=== PATIENT | female | born 1995 | race Caucasian/White ===

== ENCOUNTER 2017-09-17 09:42 | Inpatient (IN) | payer SELFPAY, OTHER ==
[2017-09-15 15:44] VITALS: BMI 31.5
[2017-09-17] VITALS (17 sets, daily range): BP systolic 99–120; BP diastolic 46–81; PULSE 71–105; RESP 15–18; TEMP 36.1–36.8; O2SAT 95–100
[2017-09-17] MEDS: Lactated Ringers 1,000 ML 999 ML IV ×2 (10:10→17:10)
[2017-09-17 10:26] LABS: Absolute Lymphocyte Count 1.33 X10^3/ul (0.83-4.51); Absolute Neutrophil Count 7.4 X10^3/uL (2.0-7.7); Basophil# 0.01 X10^3/uL; Basophil% 0.1 % (0-1); Eosinophil# 0.04 X10^3/uL; Eosinophils% 0.4 % (0-5); Hematocrit 37.3 % (37-47); Hemoglobin 11.8 g/dl (12.0-15.0); Lymphocyte # 1.33 X10^3/ul (4.0); Lymphocyte % 14.2 % (19-41); Mean Corp Hgb Conc 31.6 g/gl (32-36); Mean Corpuscular Hgb 25.7 pg (27.0-32.0); Mean Corpuscular Volume 81.3 fL (81-99); Mean Platelet Vol. 8.9 fl (6.2-12.0); Monocyte# 0.54 X10^3/uL; Monocyte% 5.8 % (0-10); Neutrophil # 7.44 X10^3/uL (2.7-7.7); Neutrophil % 79.3 % (47-70); POSITIVE COUNT NO; POSITIVE DIFFERENTIAL NO; POSITIVE MORPHOLOGY NO; Platelet Count 346 K/mm3 (150-450); RBC Distribution Width CV 14.9 % (11.6-14.6); RBC Distribution Width SD 43.4 fl (35.1-43.9); Red Blood Count 4.59 M/mm3 (4.2-5.4); White Blood Count 9.4 K/mm3 (4.4-11.0)
[2017-09-17] MEDS: Lactated Ringers 1,000 ML 150 ML IV (11:15)
[2017-09-17] MEDS: Cefazolin 2 GM in 0.9% Normal Saline 100 ML IV (11:37)
[2017-09-17] MEDS: Sodium Citrate/Citric Acid 30 ML UDC PO (11:38)
--- NOTE | 2017-09-17 11:46 | PCM.HP.STD ---
Problem List (1) Post-dates Status: Acute (2) Previous delivery affecting Status: Chronic History of Present Illness Date of Admission: 09/17/17 Chief Complaint: Previous section requesting repeat C/S The patient is a 22 year old F [ at 41w4d ega with uncomplicated admitted for repeat C/S. 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 Lives: Spouse/ Significant Other Smoking Status: Never smoker Tobacco Use: Non-smoker Alcohol: None Drugs: None - *Family History Maternal History Items: No pertinent history Paternal History Items: No pertinent history Review of Systems Constitutional: Denies: Chills, Fever, Night Sweats Cardiovascular: Denies: Chest Pain, Chest Pressure, Chest Tightness, Edema Respiratory: Denies: Cough, Shortness of Breath Gastrointestinal: Denies: Constipation, Diarrhea Genitourinary: Denies: Dysuria Gynecological: Denies: Breast symptoms, Vaginal bleeding VTE Information - Inpt Only VTE Present on Admission: No VTE Mechan Device Prophylaxis: SCD's VTE Pharm Prophylaxis ordered?: No Patient Problems: Active and Suspected Problems Post-dates (Acute) Subjective: No complaints. Good movement. Objective: Afeb VSS FHR tracing Cat 1. - Physical Exam General: Alert, Oriented x3, Cooperative, No apparent distress Lungs: Clear to auscultation, Normal air movement Cardiovascular: Regular rate, Regular Rhythm Abdomen: Soft, Non Tender, Non-Distended, Gravid, Appropriate for Gestational Age Extremities: No edema, No Calf Tenderness Skin: No rashes Neurological: Neuro grossly intact Psych/Mental Status: Normal Affect Weight: 178 lb Body Mass Index (BMI) 31.5 Laboratory Tests Past 24 Hrs 09/17/17 09/17/17 09/17/17 10:10 10:10 10:10 WBC 9.4 RBC 4.59 Hgb 11.8 L Hct 37.3 MCV 81.3 MCH 25.7 L MCHC 31.6 L RDW 14.9 H RDW Differential 43.4 Plt Count 346 MPV 8.9 Immature Gran % (Auto) 0.200 Neut % (Auto) 79.3 H Lymph % (Auto) 14.2 L [place] % (Auto) 5.8 Eos % (Auto) 0.4 Baso % (Auto) 0.1 Absolute Neuts (auto) 7.4 Absolute Lymphs (auto) 1.33 Total Counted Not Reportable HIV 1&2 Antibody Pending Blood Type A POSITIVE Antibody Screen NEGATIVE Assessment/Plan Active and Suspected Problems Post-dates (Acute) Admitted for scheduled repeat section. Risks, indications, alternatives discussed. Procedures and postoperative expectations reviewed. Consents signed.
--- NOTE | 2017-09-17 11:51 | HP.PCM_ITS ---
Problem List (1) Post-dates Status: Acute (2) Previous delivery affecting Status: Chronic History of Present Illness Date of Admission: 09/17/17 Chief Complaint: Previous section requesting repeat C/S The patient is a 22 year old F [ at 41w4d ega with uncomplicated admitted for repeat C/S. 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 Lives: Spouse/ Significant Other Smoking Status: Never smoker Tobacco Use: Non-smoker Alcohol: None Drugs: None - *Family History Maternal History Items: No pertinent history Paternal History Items: No pertinent history Review of Systems Constitutional: Denies: Chills, Fever, Night Sweats Cardiovascular: Denies: Chest Pain, Chest Pressure, Chest Tightness, Edema Respiratory: Denies: Cough, Shortness of Breath Gastrointestinal: Denies: Constipation, Diarrhea Genitourinary: Denies: Dysuria Gynecological: Denies: Breast symptoms, Vaginal bleeding VTE Information - Inpt Only VTE Present on Admission: No VTE Mechan Device Prophylaxis: SCD's VTE Pharm Prophylaxis ordered?: No Patient Problems: Active and Suspected Problems Post-dates (Acute) Subjective: No complaints. Good movement. Objective: Afeb VSS FHR tracing Cat 1. - Physical Exam General: Alert, Oriented x3, Cooperative, No apparent distress Lungs: Clear to auscultation, Normal air movement Cardiovascular: Regular rate, Regular Rhythm Abdomen: Soft, Non Tender, Non-Distended, Gravid, Appropriate for Gestational Age Extremities: No edema, No Calf Tenderness Skin: No rashes Neurological: Neuro grossly intact Psych/Mental Status: Normal Affect Weight: 178 lb Body Mass Index (BMI) 31.5 Laboratory Tests Past 24 Hrs 09/17/17 09/17/17 09/17/17 10:10 10:10 10:10 WBC 9.4 RBC 4.59 Hgb 11.8 L Hct 37.3 MCV 81.3 MCH 25.7 L MCHC 31.6 L RDW 14.9 H RDW Differential 43.4 Plt Count 346 MPV 8.9 Immature Gran % (Auto) 0.200 Neut % (Auto) 79.3 H Lymph % (Auto) 14.2 L [place] % (Auto) 5.8 Eos % (Auto) 0.4 Baso % (Auto) 0.1 Absolute Neuts (auto) 7.4 Absolute Lymphs (auto) 1.33 Total Counted Not Reportable HIV 1&2 Antibody Pending Blood Type A POSITIVE Antibody Screen NEGATIVE Assessment/Plan Active and Suspected Problems Post-dates (Acute) Admitted for scheduled repeat section. Risks, indications, alternatives discussed. Procedures and postoperative expectations reviewed. Consents signed.
--- NOTE | 2017-09-17 11:59 | OP.PCM_ITS ---
Problem List (1) Post-dates Status: Acute (2) Previous delivery affecting Status: Chronic Report of Operation Date of Procedure: 09/17/17 Pre-Operative Diagnosis: Previous Delivery requesting repeat Post-Operative Diagnosis: Same Surgery/Procedure Performed:: Repeat Low Transverse Section Description of Surgical Findings:: Normal appearing uterus, ovaries, and fallopian tubes. Minor scarring of bladder to the right lower anterior uterine segment. Amniotic fluid with light meconium staining. Delivery of a live female from vertex presentation. Apgars 8/9. weight [id number]. There was a nuchal cord x 2. Placenta anterior fundal. competitive intelligence analyst: Korey Mendoza Type of Anesthesia:: Spinal Anesthesiologist: Theresa Maddox Specimen's removed: none Drains: zaragoza Estimated Blood Loss (mL): 600 Fluids Replaced: 1500cc Description of Procedure: Emily was taken to the OR with IV running. She was given 2 grams of Ancef intravenously for surgical prophylaxis. Spinal anesthesia was introduced without complication. She was then prepped and draped in the supine position with a leftward tilt. A zaragoza catheter was placed. Once anesthesia was deemed to be adequate a [place] skin incision was made over the previous scar. The underlying subcutaneous tissue was dissected down to the level of fascia using blunt and sharp dissection. The fascia was then incised in the midline and this incision was extended bilaterally with the [place] scissors. The upper portion of the fascial defect was then grasped with two Tru clamps, elevated and the underlying rectus muscles dissected off with blunt and sharp dissection. In a similar fashion the fascia was dissected off the lower fascial defect. The rectus muscles were then in the midline, the peritoneum identified and entered sharply. The peritoneal defect was extended using blunt dissection. A bladder blade was then placed. The vesicouterine peritoneum was identified and entered sharply. A bladder flap was then created. The bladder blade was replaced. A transverse incision was then made in the lower uterine incision. The uterine defect was extended using blunt lateral and superior traction. The head was then delivered atraumatically. Delayed cord clamping was employed. The baby's mouth and nares were suctioned. There was an active cry shortly after delivery. The baby was handed off to the nursing staff for evaluation. The placenta was then delivered manually. The uterus was then exteriorized and cleared of all clot and membranes. The uterine incision was then repaired in two layers with #1 Vicryl suture. The posterior cul de sac and gutters were cleared of all clots and fluid. The uterus was then returned to the abdomen. The uterine incision was inspected and found to be intact and hemostatic. The peritoneum was then closed with 2-0 Vicryl. The rectus muscles were reapproximated with 0-Vicryl suture. The fascia was reapproximated with #1 Stratofix suture. The subcutaneous layer was closed with 2-0 Vicryl. The skin was closed with a subcuticular stitch of 4-0 Monocryl. Sponge lap and needle counts were correct. The patient was taken to the recovery room in stable condition. - Complications none - Admit VTE Documentation VTE Present on Admission: No VTE Mechan Device Prophylaxis: SCD's VTE Pharm Prophylaxis ordered?: No
[2017-09-17] MEDS: Oxytocin 30 units/NS 500 ml 30 UNITS/500 ML IV.SOLN 167 UNITS IV (12:20)
--- NOTE | 2017-09-17 12:44 | PCM.OB.CSR ---
- Problem List (1) Post-dates Status: Acute (2) Previous delivery affecting Status: Chronic Delivery Classification: Scheduled Final CLIFFORD: 09/06/17 Final CLIFFORD Source: US <20 weeks Gestational age: 41 Weeks and 4 Days Indications for : Repeat Elective Description of Procedure: Normal appearing uterus ovaries and fallopian tubes. Minor scarring of bladder to right anterior lower uterine segment. Thin meconium present. Live female in vertex presentation. There was an umbilical cord around the neck x 2. Placenta anterior-fundal. Amniotic Membrane Rupture Type: Artificial Amniotic Fluid Description: Lightly stained meconium Placenta Disposition: [facility] Drain: [place] to straight drain Fluids Replaced: 1500cc Cord Entanglement: Around neck x 2, loose Nuchal Cord Compression: Without compression Cord Vessel Description: 3 Vessels Esitmated Blood Loss (ml): 600 Infant Gender: Female (1 minute): 8 (5 minute): 9 Pre-op Antibiotic Given: Ancef 2 grams IV x1 Pt instructed on risks of surgery: Bleeding, Infection, Need for Future C-Sections, Injury to surrounding structure(s) including bowel and bladder Complications: None - Admit VTE Documentation VTE Present on Admission: No VTE Mechan Device Prophylaxis: SCD's VTE Pharm Prophylaxis ordered?: No
--- NOTE | 2017-09-17 12:47 | OP.PCM_ITS ---
- Problem List (1) Post-dates Status: Acute (2) Previous delivery affecting Status: Chronic Delivery Classification: Scheduled Final CLIFFORD: 09/06/17 Final CLIFFORD Source: US <20 weeks Gestational age: 41 Weeks and 4 Days Indications for : Repeat Elective Description of Procedure: Normal appearing uterus ovaries and fallopian tubes. Minor scarring of bladder to right anterior lower uterine segment. Thin meconium present. Live female in vertex presentation. There was an umbilical cord around the neck x 2. Placenta anterior-fundal. Amniotic Membrane Rupture Type: Artificial Amniotic Fluid Description: Lightly stained meconium Placenta Disposition: [facility] Drain: [place] to straight drain Fluids Replaced: 1500cc Cord Entanglement: Around neck x 2, loose Nuchal Cord Compression: Without compression Cord Vessel Description: 3 Vessels Esitmated Blood Loss (ml): 600 Infant Gender: Female (1 minute): 8 (5 minute): 9 Pre-op Antibiotic Given: Ancef 2 grams IV x1 Pt instructed on risks of surgery: Bleeding, Infection, Need for Future C- Sections, Injury to surrounding structure(s) including bowel and bladder Complications: None - Admit VTE Documentation VTE Present on Admission: No VTE Mechan Device Prophylaxis: SCD's VTE Pharm Prophylaxis ordered?: No
--- NOTE | 2017-09-17 12:51 | DCINST_ITS ---
Discharge Diet: No Restrictions Discharge Activity: Return to Normal Activity, May Not Drive, May not drive while taking narcotic pain medications., May Shower Return to work on:: 11/01/17 May shower in (days): 0 May resume sexual activity in: 4 weeks Call your doctor if your incision/area has: Sudden Increased Bleeding, Increased Pain/ Swelling, Increased Redness, Foul Smelling Discharge, Swelling at the incision site Call your doctor if you observe: Fever of 101 or Higher, Inability to urinate, Inability to have a bowel movement, Using more than one pad per hour, Shortness of breath, Chest pain, Calf discomfort, Uncontrolled pain Remove Dressing in (days):: 3 Cleanse incision/area with: Soap & Water Additional Instructions: If you experience any of the following, contact your healthcare provider. * Bleeding that soaks a pad every hour for 2 hours * Fever 100.4 or higher * Unrelieved incision or abdominal pain * Swelling, redness, discharge or bleeding from your incision or episiotomy site * Your incision begins to separate * Problems urinating (including inability to urinate or burning while urinating) . * Visual changes * Severe headache * Flu-like symptoms * Pain or redness in one of both of your breasts * Pain, warmth, tenderness or swelling in your legs, especially the calf area * Frequent nausea and vomiting * Symptoms of depression or anxiety If you experience any of the following, call 911 or go to the nearest Emergency Room. * Chest pain * Problems breathing * Seizure activity * Partial or complete paralysis of a body part, slurred speech, weakness or drooping of the face, or a sudden inability to walk or hold your balance Allergies/Adverse Reactions: Allergies No Known Allergies Allergy (Verified 09/15/17 15:45) Medications to take at Discharge Evening [place] Oil Softgel 09/15/17 Vit No.130/Iron/FA [ Tablet] 1 each PO 09/15/17 Ibuprofen [Motrin] 800 mg PO TID PRN PRN #30 tab 09/17/17 Oxycodone [Oxyir] 5 - 10 mg PO Q4H PRN PRN 7 Days #30 tab 09/17/17 The following prescriptions were given: Oxycodone [Oxyir] 5 - 10 mg PO Q4H PRN PRN 7 Days #30 tab PRN Reason: Mod-Severe Pain (4-04/13) Ibuprofen [Motrin] 800 mg PO TID PRN PRN #30 tab PRN Reason: pain or cramping Follow-Up: Call to make an appointment with your doctor for an incision check in 1-2 weeks. You will also need a 6 week post- follow up appointment. Please Follow Up With: Milo Gilbert MD When: one week Primary Care Physician: Chapito Krause MD [Primary Care Provider] - Proposed Discharge Date: 09/19/17
[2017-09-17 14:01] LABS: Chlamydia Trachomatis by PCR Negative (Negative); Neisserai gonorrhoeae by PCR Negative (Negative); Probe Check PASS; Sample Adequacy Control PASS; Specimen Processing Control PASS
[2017-09-17 14:34] LABS: HIV - WCH Non-Reactive (Nonreactive)
[2017-09-17] MEDS: Lactated Ringers 1,000 ML 100 ML IV ×2 (17:10→19:22)
--- NOTE | 2017-09-17 18:21 | NURSING ---
1710 dr kowalski made aware of decreased urine output orders received
[2017-09-17] MEDS: Ketorolac 30 MG/ML Syringe IV (18:24)
[2017-09-17] MEDS: Cefazolin 1 GM/50 ML BAG IV (19:21)
[2017-09-18] VITALS (9 sets, daily range): BP systolic 90–112; BP diastolic 45–62; PULSE 58–103; RESP 16–18; TEMP 36.1–37.3; O2SAT 95–100
[2017-09-18] MEDS: Ketorolac 30 MG/ML Syringe IV ×4 (00:41→18:21)
[2017-09-18] MEDS: Cefazolin 1 GM/50 ML BAG IV (03:44)
[2017-09-18 06:22] LABS: Hematocrit 28.9 % (37-47); Hemoglobin 9.1 g/dl (12.0-15.0); Mean Corp Hgb Conc 31.5 g/gl (32-36); Mean Corpuscular Hgb 26.3 pg (27.0-32.0); Mean Corpuscular Volume 83.5 fL (81-99); Mean Platelet Vol. 8.7 fl (6.2-12.0); Platelet Count 233 K/mm3 (150-450); RBC Distribution Width CV 14.9 % (11.6-14.6); Red Blood Count 3.46 M/mm3 (4.2-5.4); White Blood Count 8.2 K/mm3 (4.4-11.0)
[2017-09-18 06:25] LABS: Scan Indicated on CBC? Y/N NO
[2017-09-18] MEDS: Lactated Ringers 1,000 ML 100 ML IV (06:28)
--- NOTE | 2017-09-18 08:15 | PCM.PN.OB ---
Patient Problems: Active and Suspected Problems Post-dates (Acute) Subjective: Some soreness. Bleeding light. Breast feeding. Tolerating PO Objective: Afeb VSS Hgb appropriate. Urine output good. - Physical Exam General: Alert, Oriented x3, Cooperative, No apparent distress Lungs: Clear to auscultation, Normal air movement Cardiovascular: Regular rate, Regular Rhythm Abdomen: Soft, Non Tender, Non-Distended, - - Fundus firm Incision dressing dry Extremities: No edema, No Calf Tenderness Skin: No rashes Psych/Mental Status: Normal Affect Comment: Lochia light Vital Signs Temp Pulse Resp BP Pulse Ox 98.6 F 97 16 100/55 L 97 09/18/17 08:00 09/18/17 08:00 09/18/17 08:00 09/18/17 08:00 09/18/17 06:00 Oxygen Flow Rate (L/min) 98 Oxygen Delivery Method Room Air Weight: 178 lb Body Mass Index (BMI) 31.5 Intake and Output for Last 24 Hours 09/16/17 09/17/17 09/18/17 23:59 23:59 23:59 Intake Total 1592 / 1592 1534 / 1534 Output Total 1350 / 1350 1100 / 1100 Balance 242 / 242 434 / 434 Laboratory Tests Past 24 Hrs 09/17/17 09/17/17 09/17/17 10:10 10:10 10:10 WBC 9.4 RBC 4.59 Hgb 11.8 L Hct 37.3 MCV 81.3 MCH 25.7 L MCHC 31.6 L RDW 14.9 H RDW Differential 43.4 Plt Count 346 MPV 8.9 Immature Gran % (Auto) 0.200 Neut % (Auto) 79.3 H Lymph % (Auto) 14.2 L [place] % (Auto) 5.8 Eos % (Auto) 0.4 Baso % (Auto) 0.1 Absolute Neuts (auto) 7.4 Absolute Lymphs (auto) 1.33 Total Counted Not Reportable Chlam trachomat DNA PCR HIV 1&2 Antibody Non-Reactive N.gonorrhoeae DNA (PCR) Blood Type A POSITIVE Antibody Screen NEGATIVE 09/17/17 09/18/17 11:30 05:55 WBC 8.2 RBC 3.46 L Hgb 9.1 L Hct 28.9 L MCV 83.5 MCH 26.3 L MCHC 31.5 L RDW 14.9 H RDW Differential 44.0 H Plt Count 233 MPV 8.7 Immature Gran % (Auto) Neut % (Auto) Lymph % (Auto) [place] % (Auto) Eos % (Auto) Baso % (Auto) Absolute Neuts (auto) Absolute Lymphs (auto) Total Counted Chlam trachomat DNA PCR Negative HIV 1&2 Antibody N.gonorrhoeae DNA (PCR) Negative Blood Type Antibody Screen Medical Necessity - Tobacco Use Smoking Status: Never smoker Tobacco Use: Non-smoker Assessment/Plan Active and Suspected Problems Post-dates (Acute) Doing well on POD#1. Continue routine PO care. D/C zaragoza later today. PO pain medication then.
[2017-09-18] MEDS: Prenatal Vits Tablet 1 TABLET PO (12:12)
[2017-09-18] MEDS: 0.9% Saline Lock 10 ML Syringe IV ×2 (12:25→18:21)
[2017-09-18] MEDS: Senna/Docusate Sodium 1 Tablet PO (14:28)
[2017-09-18] MEDS: oxyCODONE 5 MG Tablet PO (14:29)
[2017-09-19] MEDS: Ketorolac 30 MG/ML Syringe IV ×2 (00:16→06:19)
[2017-09-19] MEDS: 0.9% Saline Lock 10 ML Syringe IV ×2 (00:16→06:19)
[2017-09-19 02:00] VITALS: BP 122/78; PULSE 88; RESP 18; TEMP 36.7
--- NOTE | 2017-09-19 08:09 | PCM.PN.OB ---
Patient Problems: Active and Suspected Problems Post-dates (Acute) Subjective: No specific complaints. Pain reasonably controlled. Tolerating PO. Voiding. Bleeding light. Breast feeding. Objective: Afeb VSS - Physical Exam General: Alert, Oriented x3, Cooperative, No apparent distress Lungs: Clear to auscultation, Normal air movement Cardiovascular: Regular rate, Regular Rhythm Abdomen: Soft, Non Tender, Non-Distended, - - Fundus firm nontender. Incision dressing dry. Extremities: No edema Skin: No rashes Neurological: Neuro grossly intact Psych/Mental Status: Normal Affect Comment: Lochia light Vital Signs Temp Pulse Resp BP Pulse Ox 98.1 F 88 18 122/78 H 100 09/19/17 02:00 09/19/17 02:00 09/19/17 02:00 09/19/17 02:00 09/18/17 19:30 Oxygen Flow Rate (L/min) 98 Oxygen Delivery Method Room Air Weight: 178 lb Body Mass Index (BMI) 31.5 Intake and Output for Last 24 Hours 09/17/09/18/17 09/19/17 23:59 23:59 23:59 Intake Total 1592 / 1592 2127 / 2127 Output Total 1350 / 1350 4700 / 4700 Balance 242 / 242 -2573 / -2573 Medical Necessity - Tobacco Use Smoking Status: Never smoker Tobacco Use: Non-smoker Assessment/Plan Active and Suspected Problems Post-dates (Acute) Doing well on POD#2. Cleared for discharge home today. Home going instructions and warnings given.
--- NOTE | 2017-09-19 08:13 | DS.PCM_ITS ---
Discharge Date and Diagnosis - Problem List Patient Problems: Active and Suspected Problems Post-dates (Acute) Date of Admission: 09/17/17 Date of Discharge: 09/19/17 - Primary Discharge Diagnosis Active and Suspected Problems Post-dates (Acute), S/P Repeat LTCS - Secondary Discharge Diagnosis Chronic Problems Previous delivery affecting (Chronic) Hospital Course and Treatment Operations: - - Repeat Low Transverse Section Summary of Care Provided: The patient is a 22 year old F [admitted with post dates for repeat elective section. This was performed without complication with delivery of a live female without complication. Postoperative course unremarkable. Discharged home on POD#2.] Discharge Diet: No Restrictions Discharge Activity: Return to Normal Activity, May Not Drive, May not drive while taking narcotic pain medications., May Shower Return to work on:: 11/01/17 May shower in (days): 0 May resume sexual activity in: 4 weeks Call your doctor if your incision/area has: Sudden Increased Bleeding, Increased Pain/ Swelling, Increased Redness, Foul Smelling Discharge, Swelling at the incision site Call your doctor if you observe: Fever of 101 or Higher, Inability to urinate, Inability to have a bowel movement, Using more than one pad per hour, Shortness of breath, Chest pain, Calf discomfort, Uncontrolled pain Remove Dressing in (days):: 3 Cleanse incision/area with: Soap & Water Home Medications: Medications to take at Discharge Evening [place] Oil Softgel 09/15/17 RX: Vit No.130/Iron/FA [ Tablet] 1 each PO 09/15/17 RX: Ibuprofen [Motrin] 800 mg PO TID PRN PRN #30 tab 09/17/17 RX: Oxycodone [Oxyir] 5 - 10 mg PO Q4H PRN PRN 7 Days #30 tab 09/17/17 Following Prescrptions Were Given to Patient: RX: Oxycodone [Oxyir] 5 - 10 mg PO Q4H PRN PRN 7 Days #30 tab PRN Reason: Mod-Severe Pain (4-10/10) RX: Ibuprofen [Motrin] 800 mg PO TID PRN PRN #30 tab PRN Reason: pain or cramping Primary Care Physician: Chapito Krause MD [Primary Care Provider] - Please Follow Up With: Milo Gilbert MD When: one week Disposition: Home Minutes spent on discharge:: 15 Patient Condition:: Good Medical Necessity - Tobacco Use Smoking Status: Never smoker Tobacco Use: Non-smoker Meaningful Use Info Meaningful Use Diagnoses (Choose all that apply): None applicable
[2017-09-19 08:15] VITALS: BP 101/56; PULSE 86; RESP 16; TEMP 36.7
[2017-09-19] MEDS: Ibuprofen 600 MG Tablet PO (12:24)
[2017-09-19 12:30] VITALS: BP 101/56; PULSE 92; RESP 16; TEMP 36.8
== END 2017-09-19 12:30 | disposition home or self-care (01) | DRG 766 ==
PROVIDERS: Admitting Provider Obstetrics & Gynecology; Family Provider Family Medicine; PCP Family Medicine; Visit Provider Obstetrics & Gynecology
DX: O34.211 Maternal care for low transverse scar from previous cesarean delivery (principal); O48.0 Post-term pregnancy; O69.81X0 Labor and delivery complicated by cord around neck, without compression, not applicable or unspecified; O77.0 Labor and delivery complicated by meconium in amniotic fluid; Z37.0 Single live birth; Z3A.41 41 weeks gestation of pregnancy
CPT/HCPCS: 85025; 85027; 86703; 86850; 86900; 87491; 87591; 99218; J7120; A4216; G0378; J2405

== ENCOUNTER → 2018-12-22 | Outpatient (CLI) | payer SELFPAY ==
[2018-12-09 13:04] VITALS: BMI 25.1
--- NOTE | 2018-12-22 14:10 | ECHOD_ITS ---
Reason For Study: chest pain Procedure This was a 2D Doppler, Color Flow transthoracic echocardiogram. The exam was of adequate technical quality. Exam performed in department. Left Ventricle Normal LV size. Left ventricular systolic function is normal. The estimated ejection fraction is 60 %. No evidence for diastolic dysfunction. No regional wall motion abnormalities noted. Right Ventricle Normal RV size. Normal systolic function. Atria Normal left atrium. Normal right atrium. No doppler evidence for ASD. Mitral Valve There is no mitral annular calcification. Normal mitral valve. Trivial mitral valve insufficiency. Tricuspid Valve Normal tricuspid valve. Trivial tricuspid valve insufficiency. Right ventricular systolic pressure estimated to be 21 mmHg. Aortic Valve Trisinus/trileaflet aortic valve. Normal aortic valve. Pulmonic Valve The pulmonic valve is not well visualized. Trivial pulmonic valve insufficiency. Great Vessels Normal sized aortic root. Pericardium/Pleural No pericardial effusion. MMode/2D Measurements & Calculations LVIDd: 4.7 cm IVSd: 0.69 cm Ao root diam: 2.9 cm LVIDs: 3.0 cm LVPWd: 0.74 cm RVDd: 3.0 cm FS: 35.4 % LAV(MOD-bp): 50.9 ml LA A4 area: 17.9 cm2 LA dimension(2D): 2.6 cm LAV(MOD-bp) Indexed: 30.4 ml/m2 LAV(MOD-sp2): 46.8 ml LAV(MOD-sp4): 46.8 ml RA A4 area: 13.8 cm2 Time Measurements MV dec time: 0.14 sec Doppler Measurements & Calculations MV E max del: 77.8 cm/sec Lat Peak E' Del: 18.4 cm/sec Med Peak E' Del: 16.2 cm/sec MV A max del: 45.1 cm/sec E/E' lat: 4.2 E/E' med: 4.8 MV E/A: 1.7 Ao V2 max: 122.4 cm/sec LV V1 max: 93.7 cm/sec PA V2 max: 77.8 cm/sec Ao max P.0 mmHg LV V1 max P.5 mmHg TR max del: 213.2 cm/sec TR max P.2 mmHg Interpretation Summary Left ventricular systolic function is normal. The estimated ejection fraction is 60 %. Trivial mitral valve insufficiency. Trivial tricuspid valve insufficiency. Trivial pulmonic valve insufficiency. Right ventricular systolic pressure estimated to be 21 mmHg. No evidence for diastolic dysfunction. Ordering Physician: Austin Montes Referring Physician: Chapito Krause Performed By: Yara Guadalupe, KAREN, RVT
== END | disposition home or self-care (01) ==
PROVIDERS: Family Provider Family Medicine; PCP Family Medicine; Referring Provider Internal Medicine Cardiovascular Disease; Visit Provider Internal Medicine Cardiovascular Disease
DX: R07.9 Chest pain, unspecified (principal); R06.02 Shortness of breath
CPT/HCPCS: 93306

== ENCOUNTER → 2019-03-15 12:36 | Outpatient (CLI) | payer SELFPAY ==
[2019-03-07 13:50] VITALS: BMI 25.1
--- NOTE | 2019-03-15 12:38 | US_ITS ---
STUDY: SECOND AND THIRD TRIMESTER OBSTETRICAL ULTRASOUND REASON FOR EXAM: Female, 23 years old. LMP: 09/08/2018 TECHNIQUE: Transabdominal TECHNICAL QUALITY: Adequate. PRIOR ULTRASOUND: None. FINDINGS: There is a single intrauterine fetus. The fetus is in a cephalic presentation. There is demonstrated cardiac activity with a heart rate of 150 bpm. There is a normal amniotic fluid volume. The largest amniotic fluid pocket measures 4.5 cm. The amniotic fluid index (FRANCES) is 13.9 cm. The placenta is posterior in location and is not low lying. There are Grade 1 placental changes. The cervix measures 4.5 cm in length. The adnexal regions are not visualized. BIOMETRY: BPD: 6.5 cm: 26 weeks, 3 days HC: 24.8 cm: 27 weeks, 0 days AC: 22.2 cm: 26 weeks, 5 days FL: 4.8 cm: 26 weeks, 2 days CI: 76% FL/BPD: 74% FL/HC: FL/AC: 22% HC/AC: 1.12 age by current US: 26 weeks, 5 days. CLIFFORD by current US: 06/16/2019. Estimated weight: 946 grams, +/- 138 grams, 25 %. Age by LMP: 26 weeks, 6 days. CLIFFORD by LMP: 06/15/2019. US/OB Limited With Biometrics IMPRESSION: Living intrauterine of 26 weeks 5 days as described above. Electronically Signed: Rohan Catalan MD at 9:43 EDT Tel , Service support ,
[2019-03-15 20:03] LABS: Chlamydia Trachomatis by PCR Negative (Negative); Neisserai gonorrhoeae by PCR Negative (Negative); Probe Check PASS; Sample Adequacy Control PASS; Specimen Processing Control PASS
[2019-04-11 15:38] LABS: HPV Reflexed? NOT INDICATED
== END ==
PROVIDERS: Family Provider Family Medicine; PCP Family Medicine; Referring Provider Obstetrics & Gynecology; Visit Provider Obstetrics & Gynecology
DX: O34.219 Maternal care for unspecified type scar from previous cesarean delivery (principal); O48.0 Post-term pregnancy; Z3A.26 26 weeks gestation of pregnancy; Z12.4 Encounter for screening for malignant neoplasm of cervix
CPT/HCPCS: 76816; 76817; 87086; 87088; 87491; 87591; 88175; 93976; G0145

== ENCOUNTER → 2019-05-26 09:37 | Outpatient (CLI) | payer SELFPAY ==
[2019-05-26 09:08] VITALS: BMI 25.1
[2019-05-26 10:33] LABS: Absolute Lymphocyte Count 1.39 X10^3/uL (0.83-4.51); Absolute Neutrophil Count 8.6 X10^3/uL (2.0-7.7); Basophil# 0.02 X10^3/uL; Basophil% 0.2 % (0-1); Eosinophil# 0.05 X10^3/uL; Eosinophils% 0.5 % (0-5); Hematocrit 32.3 % (37-47); Lymphocyte # 1.39 X10^3/ul (4.0); Lymphocyte % 13.1 % (19-41); Mean Corpuscular Volume 77.5 fL (81-99); Mean Platelet Vol. 9.1 fl (6.2-12.0); Monocyte# 0.53 X10^3/uL; NRBC Flagged by Analyzer 0 % (0-5); Neutrophil # 8.57 X10^3/uL (2.7-7.7); Neutrophil % 80.6 % (47-70); Platelet Count 304 K/mm3 (150-450); RBC Distribution Width CV 15.3 % (11.6-14.6); RBC Distribution Width SD 42.3 fl (35.1-43.9); Red Blood Count 4.17 M/mm3 (4.2-5.4); White Blood Count 10.6 K/mm3 (4.4-11.0)
== END ==
PROVIDERS: Family Provider Family Medicine; PCP Family Medicine; Referring Provider Obstetrics & Gynecology; Visit Provider Obstetrics & Gynecology
DX: Z34.83 Encounter for supervision of other normal pregnancy, third trimester (principal)
CPT/HCPCS: 36415; 85025; 87081

== ENCOUNTER → 2019-06-09 09:32 | Outpatient (CLI) | payer OTHER, SELFPAY ==
[2019-06-09 08:29] VITALS: BMI 25.1
[2019-06-09 10:01] LABS: Absolute Neutrophil Count 8.7 X10^3/uL (2.0-7.7); Basophil# 0.02 X10^3/uL; Basophil% 0.2 % (0-1); Eosinophil# 0.05 X10^3/uL; Eosinophils% 0.5 % (0-5); Hematocrit 33.2 % (37-47); Lymphocyte % 11.5 % (19-41); Mean Corp Hgb Conc 30.1 g/dL (32-36); Mean Corpuscular Hgb 23.6 pg (27.0-32.0); Mean Corpuscular Volume 78.3 fL (81-99); Monocyte# 0.44 X10^3/uL; Monocyte% 4.2 % (0-10); NRBC Flagged by Analyzer 0 % (0-5); Neutrophil # 8.65 X10^3/uL (2.7-7.7); Neutrophil % 83.1 % (47-70); Platelet Count 302 K/mm3 (150-450); RBC Distribution Width CV 15.8 % (11.6-14.6); RBC Distribution Width SD 44.3 fl (35.1-43.9); Red Blood Count 4.24 M/mm3 (4.2-5.4); White Blood Count 10.4 K/mm3 (4.4-11.0)
[2019-06-09 10:30] LABS: Fibrinogen 481 mg/dl (203-444)
== END ==
PROVIDERS: Family Provider Family Medicine; PCP Family Medicine; Referring Provider Obstetrics & Gynecology; Visit Provider Obstetrics & Gynecology
DX: O09.33 Supervision of pregnancy with insufficient antenatal care, third trimester (principal); Z3A.00 Weeks of gestation of pregnancy not specified
CPT/HCPCS: 36415; 85025; 85384

== ENCOUNTER 2019-06-22 09:40 | Inpatient (IN) | payer SELFPAY ==
[2019-03-15 15:34] VITALS: BMI 25.1
[2019-06-16 08:59] VITALS: BMI 25.1
[2019-06-22] VITALS (17 sets, daily range): BP systolic 97–124; BP diastolic 42–72; PULSE 63–94; RESP 12–20; TEMP 36.2–37.2; O2SAT 96–100; BMI 29.2
[2019-06-22] MEDS: Lactated Ringers 1,000 ML 999 ML IV ×2 (10:05→23:27)
[2019-06-22 10:23] LABS: Absolute Lymphocyte Count 1.38 X10^3/uL (0.83-4.51); Absolute Neutrophil Count 7.3 X10^3/uL (2.0-7.7); Basophil# 0.01 X10^3/uL; Basophil% 0.1 % (0-1); Eosinophil# 0.03 X10^3/uL; Eosinophils% 0.3 % (0-5); Hematocrit 35.5 % (37-47); Hemoglobin 10.8 g/dL (12.0-15.0); Lymphocyte # 1.38 X10^3/ul (4.0); Mean Corp Hgb Conc 30.4 g/dL (32-36); Mean Corpuscular Hgb 23.4 pg (27.0-32.0); Mean Corpuscular Volume 76.8 fL (81-99); Mean Platelet Vol. 9.1 fl (6.2-12.0); Monocyte# 0.41 X10^3/uL; Monocyte% 4.5 % (0-10); NRBC Flagged by Analyzer 0 % (0-5); Neutrophil # 7.32 X10^3/uL (2.7-7.7); Neutrophil % 79.7 % (47-70); Platelet Count 319 K/mm3 (150-450); RBC Distribution Width CV 16.6 % (11.6-14.6); RBC Distribution Width SD 45.7 fl (35.1-43.9); Red Blood Count 4.62 M/mm3 (4.2-5.4); White Blood Count 9.2 K/mm3 (4.4-11.0)
[2019-06-22] MEDS: Lactated Ringers 1,000 ML 150 ML IV (11:09)
[2019-06-22 12:06] LABS: Hepatitis B Surface Antibody Non-Reactive
[2019-06-22 12:16] LABS: Rubella IgG 125.1 IU/mL
[2019-06-22] MEDS: Cefazolin 2 GM in 0.9% Normal Saline 100 ML IV (12:17)
[2019-06-22] MEDS: Sodium Citrate/Citric Acid 30 ML UDC PO (12:17)
--- NOTE | 2019-06-22 12:34 | HP.PCM_ITS ---
- Problem List (1) Late care affecting in third trimester Status: Acute Comment: first visit 26 weeks (2) Status: Acute Qualifiers: Comment: declines genetic, ntd, and carrier screening. anatomy scan done. (3) Supervision of normal in third trimester Status: Acute Qualifiers: Comment: (declined until time of delivery) CLIFFORD 06/15/19 PC Marilia Cheney, annalisa cabrera (4) Previous delivery affecting Status: Chronic Comment: consent form signed. 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 Is patient in pain?: No Allergies No Known Allergies Allergy (Verified 06/16/19 08:22) Medications docosahexanoic acid 200 mg capsule mg PO cap 03/15/19 [History Confirmed 06/16/19] Last Menstral Period: 09/08/18 Zika: Zika virus screening: Negative : No PFSH PFSH Medical History Previous delivery affecting (Chronic) depression (Acute) Chest pain (Resolved) Post-dates (Resolved) SOB (shortness of breath) (Resolved) Surgical History Previous section (Resolved) Family History Grandmother Cancer Social History (Updated 06/16/19 @ 08:59 by Lali Wakefield MD) Smoking Status: Never smoker alcohol intake: never substance use type: does not use caffeine: No additional social history: -Cabrera Pregancy History 5 Elective abortions Hx Para 3 Spontaneous abortions 1 Hx # Term Pregnancies Ectopic pregnancies Hx # Pregnancies Multiple births # of living children 3 Past Pregnancies Del. Date Name GA/Weeks Outcome Route Bth Weight Gen Labor Lgth Anesthesia Del Locatn Provider FOB 09/15/14 Noni 42 live - full term 7lbs 6oz Female [facility] Dr. Nelida Lobo 01/03/16 Annalisa 43 live - full term 7lbs 4oz Male [facility] Dr. Poppy Lobo 11/17/17 Marilia 42 live - full term 7lbs 11oz Female spinal [facility] Dr. Ofelia Lobo Delivery Date: 09/15/14 On 03/15/19 @ 14:35 [place] No issues during or delivery Delivery Date: 01/03/16 On 03/15/19 @ 14:36 Nakia,[place] Placenta Abruption Delivery Date: 11/17/17 On 03/15/19 @ 14:38 NakiaAngie joseh Was told she could not be induced due to history of placenta abruption. No issues with delivery. HPI 39 WK OB: Details: GAMALIEL BOWIE is a 23 year old who presents for routine OB visit. OB Visit CLIFFORD Calculator Estimated Delivery Date Method Current WG Current Estimate 06/15/19 LMP (Certain) 40w 1d Expected Delivery Route/Plan if labor, if not then RLTCS patient counseled regarding risks/benefits of trial of labor versus repeat . ACOG and uptodate education given to patient. % likelihood of success per calculator TOLAC consent form signed: Labor Preferences- labor support person: samueal pain management options preferred: epidurral cut cord/dad catch: no : yes PP control planned: [] discussed possible routes of delivery and associated risks: [] special requests: [] Specific Issue/Plans flu vaccine: declines tdap vaccine: declines rhogam: LARC form signed: declined Problem list reviewed and updated with the most current plan of care details and appropriate orders placed. Relevant counseling for the gestational age provided. Continue routine care and follow up unless otherwise noted in visit notes/problem list details Initial Weight: 142 lb Date EGA Weight BP Urine Prot Glucose FHR FuHt Pres Mov CTX Dilation Effaced St Visit Note 03/15/19 26w 6d 154 lb 8 oz (+12 lb 8 oz) 110/56 150 04/19/19 31w 6d 160 lb 6 oz (+18 lb 6 oz) 118/68 Negative Negative 148 31 Doing well. Good FM. NO VB, LOF. 05/08/19 34w 4d 165 lb 2 oz (+23 lb 2 oz) 100/62 Negative Negative 145 34 no vb lof good fm no reg ctx 05/26/19 37w 1d 166 lb (+24 lb) 114/70 Negative Negative 140 37 no vb lof good fm no reg ctx agreed to cbc declined other PNL, gbs done. plan CS for 41 weeks prior if spontaneous labor 06/09/19 39w 1d 165 lb (+23 lb) 111/64 Negative Negative 155 38 Cephalic 0.5 no vb lof co some right sided pain and discomfort, contractions but it r esolved. 06/16/19 40w 1d 169 lb 2 oz (+27 lb 2 oz) 122/72 Negative Negative 140 38 Cephalic 0.5 no vb lof good fm no regular ctx Visit Notes Visit Date: 06/16/19 ??no vb lof good fm no regular ctx ??Lali Wakefield MD on 06/16/19 Visit Date: 06/09/19 ??no vb lof co some right sided pain and discomfort, contractions but it resolved. ??Lali Wakefield MD on 06/09/19 Visit Date: 05/26/19 ??no vb lof good fm no reg ctx agreed to cbc declined other PNL, gbs done. plan CS for 41 weeks prior if spontaneous labor ??Lali Wakefield MD on 05/26/19 Visit Date: 05/08/19 ??no vb lof good fm no reg ctx ??Lali Wakefield MD on 05/08/19 Visit Date: 04/19/19 ??Doing well. Good FM. NO VB, LOF. ??LILLY Montoya on 04/19/19 Visit Date: 03/15/19 ??No visit notes to display ACOG First Trimester First Trimester: Desire for , Alcohol, Tobacco Cessation, Illicit/Recreational Drug/Substance Use, Intimate Partner Violence, Barriers to care, Unstable Housing, Communication Barriers, Environmental/Work Hazards, Anticipated Course of Care, Toxoplasmosis Precations, Use of Any medications, Sexual activity, Exercise, Dental Care, Sauna/Hot tub use, Seat Belt use, Childbirth classes/Hospital facilities, , Travel, Indications for US and Screening for Aneuploidy Diagnostics Diagnostics Diagnostics Blood Type A POSITIVE 03/16/18 Antibody Screen NEGATIVE 09/17/17 HIV 1&2 Antibody Non-Reactive (Nonreactive) 09/17/17 Hgb 10.0 g/dL (12.0-15.0) L 06/09/19 Hct 33.2 % (37-47) L 06/09/19 Details: HIV: Urine Culture: Sequential Screen: NIPT Screen: Results [id number] Office Urine Glucose Negative Last Edit by Floresita Mckeon on 06/16/19 08:33 Office Urine Protein Negative Last Edit by Floresita Mckeon on 06/16/19 08:33 Assessment & Plan Problems 1. Late care affecting in third trimester O09.33 first visit 26 weeks 2. 40 weeks gestation of Z3A.40 declines genetic, ntd, and carrier screening. anatomy scan done. 3. Encounter for supervision of other normal in third trimester Z34.83 (declined until time of delivery) CLIFFORD 06/15/19 PC Marilia Cheney andrew cabrera 4. Previous delivery affecting O34.219 consent form signed. plan TOLAC if able, previous then 2 cs; would want cs if no labor at term Orders Orders: POC Urinalysis 2 Dip (Clinic) Today Coding Level of Care Code OB Routine Diagnoses Late care affecting in third trimester O09.33 40 weeks gestation of Z3A.40 ??Weeks of gestation: 40 weeks Encounter for supervision of other normal in third trimester Z34.83 ??Normal : other normal Previous delivery affecting O34.219 UPDATE- I have seen the patient and performed any clinically relevant updates to the history and physical exam. Lali Wakefield MD
--- NOTE | 2019-06-22 12:38 | OP.PCM_ITS ---
Problem List (1) Late care affecting in third trimester Status: Acute Comment: first visit 26 weeks (2) Status: Acute Qualifiers: Comment: declines genetic, ntd, and carrier screening. anatomy scan done. (3) Supervision of normal in third trimester Status: Acute Qualifiers: Comment: (declined until time of delivery) CLIFFORD 06/15/19 Marilia Corrigan annalisa cabrera (4) Previous delivery affecting Status: Chronic Comment: consent form signed. plan TOLAC if able, previous then 2 cs; would want cs if no labor at term Delivery Classification: Scheduled Final CLIFFORD: 06/15/19 Gestational age: 41 Weeks and 0 Days Type of Anesthesia:: Spinal Special Medications: none Implants Used: none Date of Procedure: 06/22/19 Pre-Operative Diagnosis: previous cs x 2 Post-Operative Diagnosis: same Indications for : Repeat Elective Description of Procedure: The patient is a 24 yo presented for repeat . Spinal anesthesia was placed without difficulty. Quiroga catheter was placed. The patient was placed in the dorsal supine position with leftward tilt. Patient was prepped and drap ed in the normal sterile fashion. Pfannenstiel skin incision was made with the scalpel and carried through to the underlying layer of fascia with the scalpel. Fascia was nicked in the midline and the incision extended laterally. The rectus bellies were dissected off superiorly and inferiorly with out complication both sharply and bluntly. The peritoneum was entered digitally. The incision was stretched and a low transverse uterine incision was made with the scalpel. The infant's head was delivered atraumatically followed by the anterior and posterior shoulders without complication the rest of the infant delivered. The cord was clamped and cut and the was handed off to awaiting nurse. The placenta was delivered spontaneously immediately following and was noted to be intact and have a three-vessel cord. The uterus was exteriorized cleared of all clots and debris, and the incision was closed in a double layer closure using #1 Monocryl. The ovaries and fallopian tubes were noted to be within normal limits. The uterus was returned to the maternal abdomen and gutters were cleared of all clots and debris. The peritoneum was closed with 3-0 Monocryl in a running fashion. Gloves were changed prior to fascial closure. Fascia was closed with 0 PDS in a running fashion. Subcutaneous tissue was copiously irrigated and the skin was closed with 3-0 Monocryl in a subcuticular fashion. Mepilex dressing was applied without complication. Patient was taken to recovery in stable condition. It was discussed with the patient that based on the clinical information obtained during this encounter, combined with her history, at this time I would recommend cesareans for future deliveries if further pregnancies are desired. Amniotic Membrane Rupture Type: Artificial Amniotic Fluid Description: Clear Placenta Disposition: [facility] Drain: Quiroga to straight drain Cord Entanglement: None Cord Vessel Description: 3 Vessels Esitmated Blood Loss (ml): 600 Gender: Male Delayed cord clamping: Yes Antibiotic Given: Ancef 2 grams IV x1 Pt instructed on risks of surgery: Bleeding, Anesthesia Risks, Need for Future C-Sections Complications: None - Admit VTE Documentation VTE Present on Admission: No Multi Select Codes - Urinary/Genital Urinary/Genital CPT Codes: 88598 Delivery [facility]
--- NOTE | 2019-06-22 12:40 | DCINST_ITS ---
Discharge Diet: No Restrictions Discharge Activity: Return to Normal Activity, May not drive while taking narcotic pain medications., May Shower May resume sexual activity in: 4-6 weeks Call your doctor if your incision/area has: Continuous Slow Oozing, Sudden Increased Bleeding, Increased Pain/ Swelling, Increased Redness, Foul Smelling Discharge Additional Instructions: If you experience any of the following, contact your healthcare provider. * Bleeding that soaks a pad every hour for 2 hours * Fever 100.4 or higher * Unrelieved incision or abdominal pain * Swelling, redness, discharge or bleeding from your incision or episiotomy site * Your incision begins to separate * Problems urinating (including inability to urinate or burning while urinating). * Visual changes * Severe headache * Flu-like symptoms * Pain or redness in one of both of your breasts * Pain, warmth, tenderness or swelling in your legs, especially the calf area * Frequent nausea and vomiting * Symptoms of depression or anxiety If you experience any of the following, call 911 or go to the nearest Emergency Room. * Chest pain * Problems breathing * Seizure activity * Partial or complete paralysis of a body part, slurred speech, weakness or drooping of the face, or a sudden inability to walk or hold your balance Allergies/Adverse Reactions: Allergies No Known Allergies Allergy (Verified 06/16/19 08:22) Medications to take at Discharge docosahexanoic acid 200 mg capsule 200 mg PO DAILY cap 03/15/19 No122/Iron/Folic Acid [ Multi Tablet] 1 ea PO DAILY 06/22/19 Please Follow Up With: Lali Wakefield MD - [phone] When: Call to make an appointment with your doctor in 6 weeks. If you had elevated Blood pressure or 4th degree laceration you will need to be seen in 2 weeks. Primary Care Physician: Chapito Krause DO [Primary Care Provider] - Test Results: Test results from this visit will be discussed in further detail at your follow- up appointment, if applicable.
--- NOTE | 2019-06-22 12:40 | PCM.DCVAG ---
Discharge Diet: No Restrictions Discharge Activity: Return to Normal Activity, May not drive while taking narcotic pain medications., May Shower May resume sexual activity in: 4-6 weeks Call your doctor if your incision/area has: Continuous Slow Oozing, Sudden Increased Bleeding, Increased Pain/ Swelling, Increased Redness, Foul Smelling Discharge Additional Instructions: If you experience any of the following, contact your healthcare provider. Bleeding that soaks a pad every hour for 2 hours Fever 100.4 or higher Unrelieved incision or abdominal pain Swelling, redness, discharge or bleeding from your incision or episiotomy site Your incision begins to separate Problems urinating (including inability to urinate or burning while urinating). Visual changes Severe headache Flu-like symptoms Pain or redness in one of both of your breasts Pain, warmth, tenderness or swelling in your legs, especially the calf area Frequent nausea and vomiting Symptoms of depression or anxiety If you experience any of the following, call 911 or go to the nearest Emergency Room. Chest pain Problems breathing Seizure activity Partial or complete paralysis of a body part, slurred speech, weakness or drooping of the face, or a sudden inability to walk or hold your balance Allergies/Adverse Reactions: Allergies No Known Allergies Allergy (Verified 06/16/19 08:22) Medications to take at Discharge docosahexanoic acid 200 mg capsule 200 mg PO DAILY cap 03/15/19 No122/Iron/Folic Acid [ Multi Tablet] 1 ea PO DAILY 06/22/19 Please Follow Up With: Lali Wakefield MD - [phone] When: Call to make an appointment with your doctor in 6 weeks. If you had elevated Blood pressure or 4th degree laceration you will need to be seen in 2 weeks. Primary Care Physician: Chapito Krause DO [Primary Care Provider] - Test Results: Test results from this visit will be discussed in further detail at your follow-up appointment, if applicable.
[2019-06-22] MEDS: Oxytocin 30 units/NS 500 ml 30 UNITS/500 ML IV.SOLN 334 UNITS IV (13:53)
[2019-06-22] MEDS: Lactated Ringers 1,000 ML 100 ML IV (16:40)
--- NOTE | 2019-06-22 18:06 | DCINST_ITS ---
Discharge Diet: No Restrictions Discharge Activity: May Not Drive - for 2 weeks, May not drive while taking narcotic pain medications., May Shower, May Take a Tub Bath - in 7 days May resume sexual activity in: 4-6 weeks Lifting Restrictions: 20 pounds Additional Activity Instructions:: Nothing in the vagina for 4-6 weeks. You may return to work/school in 6 weeks. Call your doctor if your incision/area has: Continuous Slow Oozing, Sudden Increased Bleeding, Increased Pain/ Swelling, Increased Redness, Foul Smelling Discharge Call your doctor if you observe: Fever of 101 or Higher, Using more than one pad per hour - for 2 hours Suture Line Care: Avoid Pulling/Pushing, Avoid Pinching/Bending Cleanse incision/area with: Keep Dressing Clean & Dry Additional Instructions: If you experience any of the following, contact your healthcare provider. * Bleeding that soaks a pad every hour for 2 hours * Fever 100.4 or higher * Unrelieved incision or abdominal pain * Swelling, redness, discharge or bleeding from your incision or episiotomy site * Your incision begins to separate * Problems urinating (including inability to urinate or burning while urinating). * Visual changes * Severe headache * Flu-like symptoms * Pain or redness in one of both of your breasts * Pain, warmth, tenderness or swelling in your legs, especially the calf area * Frequent nausea and vomiting * Symptoms of depression or anxiety If you experience any of the following, call 911 or go to the nearest Emergency Room. * Chest pain * Problems breathing * Seizure activity * Partial or complete paralysis of a body part, slurred speech, weakness or drooping of the face, or a sudden inability to walk or hold your balance Allergies/Adverse Reactions: Allergies No Known Allergies Allergy (Verified 06/16/19 08:22) Medications to take at Discharge docosahexanoic acid 200 mg capsule 200 mg PO DAILY cap 03/15/19 Naproxen [Naprosyn] 250 - 500 mg PO Q8H PRN PRN #30 tab 06/22/19 Oxycodone HCl/Acetaminophen [Percocet 5-325] 1 - 2 tab PO Q6H PRN PRN 7 Days #15 tab 06/22/19 No122/Iron/Folic Acid [ Multi Tablet] 1 ea PO DAILY 06/22/19 The following prescriptions were given: Naproxen [Naprosyn] 250 - 500 mg PO Q8H PRN PRN #30 tab PRN Reason: MILD PAIN Transmission Status: Received by [facility] Oxycodone HCl/Acetaminophen [Percocet 5-325] 1 - 2 tab PO Q6H PRN PRN 7 Days #15 tab PRN Reason: Pain Transmission Status: Received by [facility] Follow-Up: Call to make an appointment with your doctor for an incision check in 1-2 weeks. You will also need a 6 week post- follow up appointment. Test results from this visit will be discussed in further detail at your follow- up appointment, if applicable. Please Follow Up With: Lali Wakefield MD - Call to make an appointment for an incision check in 1-2 [phone] When: You will need a post- check in 6 weeks. Primary Care Physician: Chapito Krause, [Primary Care Provider] -
[2019-06-22] MEDS: 0.9% Saline Lock 10 ML Syringe IV (18:24)
[2019-06-22] MEDS: Ketorolac 30 MG/ML Syringe IV (18:24)
[2019-06-22] MEDS: Lactated Ringers 500 ML 999 ML IV (18:47)
[2019-06-22 23:27] LABS: Hemoglobin 8.4 g/dL (12.0-15.0)
[2019-06-23] VITALS (11 sets, daily range): BP systolic 87–106; BP diastolic 44–56; PULSE 68–95; RESP 16–18; TEMP 36.8–37.2; O2SAT 96–100
[2019-06-23] MEDS: Lactated Ringers 1,000 ML 100 ML IV (00:40)
[2019-06-23] MEDS: Ketorolac 30 MG/ML Syringe IV ×4 (00:40→17:36)
[2019-06-23 04:00] LABS: Hemoglobin 8.6 g/dL (12.0-15.0)
[2019-06-23 05:05] LABS: Hematocrit 28.1 % (37-47); Hemoglobin 8.6 g/dL (12.0-15.0); Mean Corp Hgb Conc 30.6 g/dL (32-36); Mean Corpuscular Hgb 23.8 pg (27.0-32.0); Mean Corpuscular Volume 77.6 fL (81-99); Mean Platelet Vol. 9.5 fl (6.2-12.0); Platelet Count 254 K/mm3 (150-450); RBC Distribution Width CV 16.6 % (11.6-14.6); RBC Distribution Width SD 46.8 fl (35.1-43.9); Red Blood Count 3.62 M/mm3 (4.2-5.4)
--- NOTE | 2019-06-23 08:10 | PCM.PN.OB ---
Subjective: doing well no complaints pain controlled no CP SOB N V up to bedside tolerating po lochia moderate, going well - Physical Exam Vitals/I&O's: Vital Signs Temp Pulse Resp BP Pulse Ox 98.4 F 75 16 91/53 L 96 06/23/19 03:35 06/23/19 05:30 06/23/19 05:30 06/23/19 03:40 06/23/19 05:30 Oxygen Delivery Method Room Air Weight: 170 lb 6.677 oz Body Mass Index (BMI) 29.2 Intake and Output for Last 24 Hours 06/21/19 06/22/19 06/23/19 23:59 23:59 23:59 Intake Total 3428.17 / 3428.17 1000 / 1000 Output Total 300 / 300 2100 / 2100 Balance 3128.17 / 3128.17 -1100 / -1100 General: Alert, Oriented x3 Abdomen: Soft, Non-Distended, - - FF below U. Dressing dry and intact Laboratory Results 06/22/19 10:05: WBC 9.2, RBC 4.62, Hgb 10.8 L, Hct 35.5 L, MCV 76.8 L, MCH 23.4 L, MCHC 30.4 L, RDW Std Deviation 45.7 H, RDW Coeff of Daja 16.6 H, Plt Count 319, MPV 9.1, Immature Gran % (Auto) 0.400, Neut % (Auto) 79.7 H, Lymph % (Auto) 15.0 L, [place] % (Auto) 4.5, Eos % (Auto) 0.3, Baso % (Auto) 0.1, Absolute Neuts (auto) 7.3, Absolute Lymphs (auto) 1.38, Nucleated RBC % 0 06/22/19 10:05: Blood Type A POSITIVE, Antibody Screen NEGATIVE 06/22/19 11:20: Rubella IgG Antibody 125.1 06/22/19 11:20: RPR Pending 06/22/19 11:20: Hep Bs Antibody Non-Reactive 06/22/19 23:22: Hgb 8.4 L 06/23/19 03:50: WBC 10.0, RBC 3.62 L, Hgb 8.6 L, Hct 28.1 L, MCV 77.6 L, MCH 23.8 L, MCHC 30.6 L, RDW Std Deviation 46.8 H, RDW Coeff of Daja 16.6 H, Plt Count 254, MPV 9.5 06/23/19 03:50: Hgb 8.6 L Current Medications Acetaminophen (Tylenol) 1,000 mg PO Q8H PRN PRN PRN Reason: Pain Score 1-3/10 Bisacodyl (Dulcolax) 10 mg RECTAL UD PRN PRN Reason: If no BM Dibucaine (Dibucaine) 1 applic TOPICAL TID PRN PRN; Protocol PRN Reason: Discomfort Hydrocortisone (Hytone) 1 applic TOPICAL TID PRN PRN; Protocol PRN Reason: Discomfort Lactated Ringer's () 1,000 mls @ 100 mls/hr IV .Q10H [facility] Last Admin: 06/23/19 00:40 Dose: 100 mls/hr Documented by: Naloxone HCl 4 mg/ Dextrose 504 mls @ 0 mls/hr IV .Q0M PRN; Protocol PRN Reason: Respiratory depression Ketorolac Tromethamine (Toradol) 30 mg IV Q6H [facility] Stop: 06/24/19 12:01 Last Admin: 06/23/19 06:15 Dose: 30 mg Documented by: Methylergonovine Maleate (Methergine) 0.2 mg IM X1 PRN PRN Reason: Excess bleeding/uterine atony Nalbuphine HCl (Nubain) 5 mg IV Q3H PRN PRN PRN Reason: ITCHING Stop: 06/23/19 13:57 Naloxone HCl (Narcan) 0.02 mg IV Q1M PRN PRN Reason: RR <10 and pt unresponsive Naproxen (Naprosyn) 250 - 500 mg PO Q8H PRN PRN PRN Reason: Pain Score 1-3/10 Ondansetron HCl (Zofran) 4 mg IV Q4H PRN PRN PRN Reason: Nausea Oxycodone HCl (Oxyir) 5 - 10 mg PO Q4H PRN PRN PRN Reason: Pain Score 4-10/10 Prochlorperazine Edisylate (Compazine Iv) 10 mg IV Q6H PRN PRN PRN Reason: NAUSEA Senna/Docusate Sodium (Senokot-S, [place]-Colace) 1 - 2 tablet PO DAILY PRN PRN PRN Reason: Constipation Simethicone (Mylicon) 80 mg PO PCHS PRN PRN Reason: Indigestion/Stomach pain Sodium Chloride () 5 - 15 ml IV UD PRN PRN Reason: SALINE FLUSH Last Admin: 06/22/19 18:24 Dose: 10 ml Documented by: Medical Necessity - Tobacco Use Smoking Status: Never smoker Assessment/Plan All Active Problems (Last Reviewed 06/16/19 @ 08:22 by [place] Yee) Late care affecting in third trimester (Acute) (Acute) Supervision of normal in third trimester (Acute) Chest pain (Resolved) Post-dates (Resolved) SOB (shortness of breath) (Resolved) s/p LTCS PPD # 1 1. routine post care 2. breast feeding- support given 3. rh positive 4. rubella immune
[2019-06-23] MEDS: 0.9% Saline Lock 10 ML Syringe IV ×2 (11:43→17:37)
--- NOTE | 2019-06-23 18:00 | CASEMGMT ---
Social Work Brief Assessment - Labor and Delivery Unit Refer documentation below for further details. Date of Referral/Notification: 06/22/19 Time of Referral: 14:46 Reason for Referral: HX OF UNDIAGNOSED POST DEPRESSION (PPD) Date of Intervention: 06/23/19 Time of Intervention: 18:00 Informant: Medical record and mother of baby (MOB) Assessment: MET WITH MOB AND FOB IN ROOM. THEY REPORT THIS IS THEIR 4TH CHILD. BABY MARCI JACOBSEN WAS BORN ON 06/22/19. MOB REPORTS BABY DOING WELL. MOB IS AND REPORTS IT IS GOING WELL. DISCUSSED MOB'S MENTAL HEALTH HISTORY. MOB REPORTS BELIEVED TO HAVE HAD PPD AFTER LAST , BUT IT WAS NEVER DIAGNOSED. MOB AND FOB REPORT MOB WITH HISTORY OF ANXIETY. FOB STATES MOB HAD ANXIETY ATTACK BACK IN SEPTEMBER. MOB REPORTED HAD CHEST TIGHTNESS AND PAIN. 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 MOB AGREED WITH STATEMENT. MOB STATES IS NOT ON ANY MEDICATION FOR MENTAL HEALTH. MOB REPORTS GOOD SUPPORT FROM FAMILY AND [facility]. MOB AND FOB STATE HAVE ALL NEEDS MET FOR BABY. REVIEWED INFORMATIONAL HANDOUTS ON POST DEPRESSION. MOB AND FOB DECLINE ANY NEED FOR REFERRALS. HANDOUTS GIVEN ALONG WITH [facility] LIST OF RESOURCES. MOB HOPEFUL FOR D/C TOMORROW AND THANKED THIS WORKER FOR VISIT. NURSE UPDATED ON ASSESSMENT. Plan: HOME WITH FAMILY BEFORE. RESOURCES PROVIDED. No further needs requested or indicated. -Madelin Cook, SECURITY COORDINATOR, CYBER SECURITY ANALYST
[2019-06-24] MEDS: Naproxen 250 MG Tablet PO ×2 (00:46→07:56)
[2019-06-24] MEDS: Senna/Docusate Sodium 1 Tablet PO (00:56)
[2019-06-24 02:00] VITALS: BP 98/50; PULSE 81; RESP 18; TEMP 36.9; O2SAT 97
[2019-06-24 06:44] LABS: Hematocrit 31.1 % (37-47); Hemoglobin 9.3 g/dL (12.0-15.0); Mean Corp Hgb Conc 29.9 g/dL (32-36); Mean Corpuscular Hgb 23.4 pg (27.0-32.0); Mean Corpuscular Volume 78.3 fL (81-99); Mean Platelet Vol. 8.9 fl (6.2-12.0); Platelet Count 298 K/mm3 (150-450); RBC Distribution Width SD 47.4 fl (35.1-43.9); Red Blood Count 3.97 M/mm3 (4.2-5.4); White Blood Count 8.9 K/mm3 (4.4-11.0)
[2019-06-24 08:00] VITALS: BP 110/63; PULSE 80; RESP 18; TEMP 36.8
--- NOTE | 2019-06-24 11:16 | PCM.PN.OB ---
Subjective: doing well no complaints pain controlled no CP SOB N V ambulating well tolerating po lochia moderate, going well - Physical Exam Vitals/I&O's: Vital Signs Temp Pulse Resp BP Pulse Ox 98.3 F 80 18 110/63 97 06/24/19 08:00 06/24/19 08:00 06/24/19 08:00 06/24/19 08:00 06/24/19 02:00 Oxygen Delivery Method Room Air Weight: 170 lb 6.677 oz Body Mass Index (BMI) 29.2 Intake and Output for Last 24 Hours 06/22/19 06/23/19 06/24/19 23:59 23:59 23:59 Intake Total 3428.17 / 3428.17 1999 Output Total 300 / 300 3850 / 3850 Balance 3128.17 / 3128.17 -1850 / -1850 General: Alert, Oriented x3 Laboratory Results 06/24/19 06:35: WBC 8.9, RBC 3.97 L, Hgb 9.3 L, Hct 31.1 L, MCV 78.3 L, MCH 23.4 L, MCHC 29.9 L, RDW Std Deviation 47.4 H, RDW Coeff of Daja 17.0 H, Plt Count 298, MPV 8.9 Current Medications Acetaminophen (Tylenol) 1,000 mg PO Q8H PRN PRN PRN Reason: Pain Score 1-3/10 Bisacodyl (Dulcolax) 10 mg RECTAL UD PRN PRN Reason: If no BM Dibucaine (Dibucaine) 1 applic TOPICAL TID PRN PRN; Protocol PRN Reason: Discomfort Hydrocortisone (Hytone) 1 applic TOPICAL TID PRN PRN; Protocol PRN Reason: Discomfort Lactated Ringer's () 1,000 mls @ 100 mls/hr IV .Q10H DALILA Last Admin: 06/24/19 00:46 Dose: Not Given Documented by: Naloxone HCl 4 mg/ Dextrose 504 mls @ 0 mls/hr IV .Q0M PRN; Protocol PRN Reason: Respiratory depression Ketorolac Tromethamine (Toradol) 30 mg IV Q6H DALILA Stop: 06/24/19 12:01 Last Admin: 06/24/19 07:51 Dose: Not Given Documented by: Methylergonovine Maleate (Methergine) 0.2 mg IM X1 PRN PRN Reason: Excess bleeding/uterine atony Naloxone HCl (Narcan) 0.02 mg IV Q1M PRN PRN Reason: RR <10 and pt unresponsive Naproxen (Naprosyn) 250 - 500 mg PO Q8H PRN PRN PRN Reason: Pain Score 1-3/10 Last Admin: 06/24/19 07:56 Dose: 500 mg Documented by: Ondansetron HCl (Zofran) 4 mg IV Q4H PRN PRN PRN Reason: Nausea Oxycodone HCl (Oxyir) 5 - 10 mg PO Q4H PRN PRN PRN Reason: Pain Score 4-10/10 Prochlorperazine Edisylate (Compazine Iv) 10 mg IV Q6H PRN PRN PRN Reason: NAUSEA Senna/Docusate Sodium (Senokot-S, [place]-Colace) 1 - 2 tablet PO DAILY PRN PRN PRN Reason: Constipation Last Admin: 06/24/19 00:56 Dose: 2 tablet Documented by: Simethicone (Mylicon) 80 mg PO PCHS PRN PRN Reason: Indigestion/Stomach pain Sodium Chloride () 5 - 15 ml IV UD PRN PRN Reason: SALINE FLUSH Last Admin: 06/23/19 17:37 Dose: 10 ml Documented by: Medical Necessity - Tobacco Use Smoking Status: Never smoker Assessment/Plan All Active Problems (Last Reviewed 06/16/19 @ 08:22 by [place] Yee) Late care affecting in third trimester (Acute) (Acute) Supervision of normal in third trimester (Acute) Chest pain (Resolved) Post-dates (Resolved) SOB (shortness of breath) (Resolved) s/p LTCS PPD # 2 1. routine post care 2. breast feeding- support given 3. rh positive 4. rubella immune
[2019-06-29 00:56] LABS: Rapid Plasmin Reagin (RPR) NONREACTIVE (NONREACTIVE)
== END 2019-06-24 12:45 | disposition home or self-care (01) | DRG 788 ==
PROVIDERS: Nurse Practitioner Women's Health; Admitting Provider Obstetrics & Gynecology; Family Provider Family Medicine; PCP Family Medicine; Referring Provider Obstetrics & Gynecology; Visit Provider Obstetrics & Gynecology
PROC: 10D00Z1 Extraction of Products of Conception, Low, Open Approach (ICD-10-PCS; CPT 59514; principal; 2019-06-22 11:45)
DX: O48.0 Post-term pregnancy (principal); Z3A.41 41 weeks gestation of pregnancy; Z37.0 Single live birth
CPT/HCPCS: 85018; 85025; 85027; 86592; 86706; 86762; 86850; 86900; 86901; 99218; J7120; A4216; G0378; J2405

== ENCOUNTER → 2020-11-18 11:11 | Outpatient (CLI) | payer OTHER, SELFPAY ==
[2020-11-18 10:30] VITALS: BMI 25.9
[2020-11-18 11:33] LABS: Absolute Lymphocyte Count 1.58 X10^3/uL (0.83-4.51); Absolute Neutrophil Count 4.1 X10^3/uL (2.0-7.7); Basophil# 0.01 X10^3/uL; Basophil% 0.2 % (0-1); Eosinophil# 0.09 X10^3/uL; Eosinophils% 1.5 % (0-5); Hematocrit 35.9 % (37-47); Hemoglobin 11.8 g/dL (12.0-15.0); Lymphocyte # 1.58 X10^3/ul (0.83-4.51); Lymphocyte % 26.4 % (19-41); Mean Corp Hgb Conc 32.9 g/dL (32-36); Mean Corpuscular Hgb 29.1 pg (27.0-32.0); Mean Corpuscular Volume 88.6 fL (81-99); Mean Platelet Vol. 8.9 fl (6.2-12.0); Monocyte# 0.23 X10^3/uL; Monocyte% 3.8 % (0-10); NRBC Flagged by Analyzer 0 % (0-5); Neutrophil # 4.07 X10^3/uL (2.7-7.7); Neutrophil % 67.9 % (47-70); Platelet Count 310 K/mm3 (150-450); RBC Distribution Width CV 12.6 % (11.6-14.6); RBC Distribution Width SD 41.5 fl (35.1-43.9); Red Blood Count 4.05 M/mm3 (4.2-5.4)
[2020-11-18 11:59] LABS: Rubella IgG Reactive (Nonreactive)
== END ==
PROVIDERS: PCP Family Medicine; Referring Provider Obstetrics & Gynecology; Visit Provider Obstetrics & Gynecology
DX: Z34.90 Encounter for supervision of normal pregnancy, unspecified, unspecified trimester (principal)
CPT/HCPCS: 36415; 85025; 86762; 86850; 86900; 86901; 87086; 87088

== ENCOUNTER → 2021-01-28 13:53 | Outpatient (CLI) | payer SELFPAY ==
[2020-12-27 10:50] VITALS: BMI 25.9
--- NOTE | 2021-01-28 13:56 | US_ITS ---
STUDY: SECOND AND THIRD TRIMESTER OBSTETRICAL ULTRASOUND REASON FOR EXAM: Female, 25 years old screening anatomy LMP: 08/25/2020. TECHNIQUE: Transabdominal and Transvaginal TECHNICAL QUALITY: Adequate. PRIOR ULTRASOUND: None. FINDINGS: There is a single intrauterine fetus. The fetus is in a breech presentation. There is demonstrated cardiac activity with a heart rate of 152 bpm. There is a normal amniotic fluid volume. The largest amniotic fluid pocket measures 3.3 cm x 6 cm. The amniotic fluid index (FRANCES) is within normal limits. The placenta is anterior in location and is not low lying. There are Grade 0 placental changes. The cervix measures 4.7 cm in length. The adnexal regions are not visualized. BIOMETRY: BPD: 5.05 cm: 21 weeks, 2 days HC: 19.75 cm: 21 weeks, 6 days AC: 16.66 cm: 21 weeks, 4 days FL: 3.67 cm: 21 weeks, 4 days CI: 75.1 percent FL/BPD: 72.7 percent FL/HC: FL/AC: 22% HC/AC: 1.19 age by current US: 21 weeks, 3 days. CLIFFORD by current US: 06/08/2021. Estimated weight: 440 grams, +/- 66 grams, 16.9 %. Age by LMP: 22 weeks, 2 days. CLIFFORD by LMP: 06/01/2021. ANATOMY: Gender: Female Cranium: Normal lateral ventricles. Normal choroid plexus. Normal cerebellum. Normal cisterna magna. Normal face, nose and lips. Chest: Normal 4-chamber heart. Abdomen/Pelvis: Normal diaphragm. Normal stomach. Normal abdominal wall. Normal cord insertion. Normal 3 vessel cord. Normal kidneys. Normal bladder. Spine: Normal cervical spine. Normal thoracic spine. Normal lumbar spine. Normal sacrum. Extremities: Normal bilateral upper extremities. Normal bilateral lower extremities. US/OB Anatomy Scan IMPRESSION: Single live intrauterine gestation with a mean gestational age of 21 weeks and 3 days. Electronically Signed: Ant Greene MD at 20:39 EDT , Service support ,
== END ==
PROVIDERS: PCP Family Medicine; Referring Provider Obstetrics & Gynecology; Visit Provider Obstetrics & Gynecology
DX: Z36.89 Encounter for other specified antenatal screening (principal)
CPT/HCPCS: 76805; 76817

== ENCOUNTER → 2021-03-14 14:16 | Outpatient (CLI) | payer OTHER, SELFPAY ==
[2021-03-14 15:23] LABS: Absolute Lymphocyte Count 1.52 X10^3/uL (0.83-4.51); Absolute Neutrophil Count 8.3 X10^3/uL (2.0-7.7); Basophil# 0.01 X10^3/uL; Basophil% 0.1 % (0-1); Eosinophil# 0.07 X10^3/uL; Eosinophils% 0.7 % (0-5); Hematocrit 33.1 % (37-47); Hemoglobin 10.5 g/dL (12.0-15.0); Lymphocyte # 1.52 X10^3/ul (0.83-4.51); Lymphocyte % 14.8 % (19-41); Mean Corp Hgb Conc 31.7 g/dL (32-36); Mean Corpuscular Hgb 28.8 pg (27.0-32.0); Mean Corpuscular Volume 90.7 fL (81-99); Monocyte# 0.37 X10^3/uL; Monocyte% 3.6 % (0-10); NRBC Flagged by Analyzer 0 % (0-5); Neutrophil # 8.25 X10^3/uL (2.7-7.7); Neutrophil % 80.3 % (47-70); Platelet Count 321 K/mm3 (150-450); RBC Distribution Width CV 12.9 % (11.6-14.6); RBC Distribution Width SD 42.8 fl (35.1-43.9); Red Blood Count 3.65 M/mm3 (4.2-5.4); White Blood Count 10.3 K/mm3 (4.4-11.0)
[2021-03-14 16:54] LABS: Glucose Challenge Gest 1H 50g 106 mg/dL (70-140)
== END ==
PROVIDERS: PCP Family Medicine; Visit Provider Obstetrics & Gynecology
DX: O09.90 Supervision of high risk pregnancy, unspecified, unspecified trimester (principal); Z13.1 Encounter for screening for diabetes mellitus; Z3A.00 Weeks of gestation of pregnancy not specified
CPT/HCPCS: 36415; 82950; 85025

== ENCOUNTER → 2021-05-16 | Outpatient (CLI) | payer SELFPAY | END | disposition home or self-care (01) | PROVIDERS: PCP Family Medicine; Visit Provider Obstetrics & Gynecology | DX: O09.90 Supervision of high risk pregnancy, unspecified, unspecified trimester (principal); Z3A.00 Weeks of gestation of pregnancy not specified | CPT/HCPCS: 87081 ==

== ENCOUNTER 2021-05-26 10:10 | Inpatient (IN) | payer SELFPAY ==
[2020-11-18 10:30] VITALS: BMI 25.9
[2021-05-26] VITALS (20 sets, daily range): BP systolic 92–123; BP diastolic 36–81; PULSE 64–109; RESP 14–16; TEMP 36.2–36.9; O2SAT 96–100; BMI 29.5
[2021-05-26] MEDS: Lactated Ringers 1,000 ML 999 ML IV (10:50)
[2021-05-26] MEDS: Acetaminophen 500 MG Tablet 1000 MG PO ×3 (11:04→23:32)
[2021-05-26 11:13] LABS: Absolute Neutrophil Count 8.7 X10^3/uL (2.0-7.7); Basophil# 0.02 X10^3/uL; Basophil% 0.2 % (0-1); Eosinophil# 0.06 X10^3/uL; Eosinophils% 0.6 % (0-5); Hematocrit 31.9 % (37-47); Hemoglobin 10.2 g/dL (12.0-15.0); Lymphocyte % 9.8 % (19-41); Mean Corpuscular Hgb 26.6 pg (27.0-32.0); Mean Corpuscular Volume 83.1 fL (81-99); Monocyte# 0.36 X10^3/uL; Monocyte% 3.5 % (0-10); NRBC Flagged by Analyzer 0 % (0-5); Neutrophil # 8.73 X10^3/uL (2.7-7.7); Neutrophil % 85.3 % (47-70); Platelet Count 323 K/mm3 (150-450); RBC Distribution Width CV 15.1 % (11.6-14.6); RBC Distribution Width SD 45.4 fl (35.1-43.9); Red Blood Count 3.84 M/mm3 (4.2-5.4); White Blood Count 10.2 K/mm3 (4.4-11.0)
[2021-05-26 12:01] LABS: Syphilis Antibodies Non-reactive
[2021-05-26] MEDS: Lactated Ringers 1,000 ML 150 ML IV (12:15)
[2021-05-26 12:20] LABS: HIV - WCH Non-Reactive (Nonreactive); Hepatitis B Surface Antigen Non-Reactive (Nonreactive); Hepatitis C Antibody Non-Reactive (Nonreactive)
[2021-05-26] MEDS: Cefazolin 2 GM in 0.9% Normal Saline 100 ML IV (12:35)
[2021-05-26] MEDS: Methylergonovine 0.2 MG/ML Ampul IM (12:49)
--- NOTE | 2021-05-26 13:27 | EX.PCM.OBRPT ---
Maternal Data Information CLIFFORD Calculator Estimated Delivery Date Method Current WG Current Estimate 06/01/21 LMP (Certain) 39w 1d Other Estimates 06/07/21 Ultrasound #1 38w 2d
[2021-05-26] MEDS: Oxytocin 30 units/NS 500 ml 30 UNITS/500 ML IV.SOLN 167 UNITS IV (13:30)
[2021-05-26 13:43] LABS: Chlamydia Trachomatis by PCR Negative (Negative); Neisserai gonorrhoeae by PCR Negative (Negative); Probe Check PASS; Sample Adequacy Control PASS; Specimen Processing Control PASS
[2021-05-26] MEDS: Ketorolac 30 MG/ML Syringe IV ×2 (14:13→19:44)
[2021-05-26] MEDS: Lactated Ringers 1,000 ML 100 ML IV (16:18)
[2021-05-26] MEDS: Ondansetron 4 MG/2 ML Vial IV (18:23)
[2021-05-27] MEDS: 0.9% Saline Lock 10 ML Syringe IV ×2 (02:29→08:27)
[2021-05-27] MEDS: Ketorolac 30 MG/ML Syringe IV ×2 (02:29→08:27)
[2021-05-27 03:33] VITALS: BP 96/50; PULSE 69; RESP 16; TEMP 36.4
[2021-05-27] MEDS: Acetaminophen 500 MG Tablet 1000 MG PO ×3 (04:48→17:01)
[2021-05-27 05:01] LABS: Hematocrit 29.3 % (37-47); Hemoglobin 9.1 g/dL (12.0-15.0); Mean Corp Hgb Conc 31.1 g/dL (32-36); Mean Corpuscular Hgb 26.1 pg (27.0-32.0); Mean Corpuscular Volume 84.2 fL (81-99); Mean Platelet Vol. 8.9 fl (6.2-12.0); Platelet Count 251 K/mm3 (150-450); RBC Distribution Width CV 15.1 % (11.6-14.6); RBC Distribution Width SD 45.8 fl (35.1-43.9); Red Blood Count 3.48 M/mm3 (4.2-5.4); White Blood Count 8.2 K/mm3 (4.4-11.0)
--- NOTE | 2021-05-27 06:49 | HP.PCM.OB_ITS ---
HPI - General General Date of Admission: 05/26/21 HPI Narrative GAMALIEL BOWIE, is a 25 F who presents for RLTCS Maternal Data Information CLIFFORD Calculator Estimated Delivery Date Method Current WG Current Estimate 06/01/21 LMP (Certain) 39w 2d Other Estimates 06/07/21 Ultrasound #1 38w 3d PFSH [facility] Medical History (Updated 05/27/21 @ 06:[address] Lali Wakefield MD) Anxiety Chest pain Mild anemia Post-dates depression Seizures SOB (shortness of breath) Superficial varicosities Home Medications docosahexaenoic acid 200 mg capsule 200 mg PO DAILY cap 03/15/19 [History Last Taken 05/25/21 10:00 200 mg] sertraline [Zoloft] 50 mg PO QDAY 05/26/21 [History Last Taken Unknown] Allergy/AdvReac Type Severity Reaction Status Date / Time No Known Allergies Allergy Verified 05/26/21 10:34 Family History Grandmother Cancer Surgical History Previous delivery affecting Previous section Social History Smoking Status: Never smoker alcohol intake: never substance use type: does not use caffeine: No additional social history: -Yamil History 6 Elective abortions Hx Para 4 Spontaneous abortions 1 Hx # Term Pregnancies Ectopic pregnancies Hx # Pregnancies Multiple births # of living children 4 Past Pregnancies Del. Date Name GA/Weeks Outcome Route Bth Weight Gen Labor Lgth Anesthesia Del Locatn Provider FOB 09/15/14 Noni 42 live - full term 7lbs 6oz Female [facility] Dr[facility] Nelida Lobo 01/03/16 Oz 43 live - full term 7lbs 4oz Male [facility] Dr. Poppy Lobo 11/17/17 Marilia 42 live - full term 7lbs 11oz Female spinal [facility] Dr. Ofelia Lobo 06/22/19 David 41 live - full term 8lbs 8oz Male spinal [facility] SERENA RLTCS Delivery Date: 09/15/14 No issues during or delivery [place] Yee Delivery Date: 01/03/16 Placenta Abruption [place] Yee Delivery Date: 11/17/17 Was told she could not be induced due to history of placenta abruption. No issues with delivery. [place] Yee Delivery Date: 06/22/19 No notes to display Visit Details Expected Delivery Route/Plan RLTCS with SM Plans covid status: non immune counseled regarding risk of covid in vs vacci nation and declined vaccination flu vaccine: declined tdap vaccine: declined rhogam: na LARC form signed: declined movement and labor precautions reviewed. Problem list reviewed and updated with the most current plan of care details and appropriate orders placed. Relevant counseling for the gestational age provided. Continue routine care and follow up unless otherwise noted in visit notes/problem list details OB Flowsheet Initial Weight: Not Recorded Date -?-?-?-?-?-?-?--?-?-?-?-?- EGA Weight BP Urine Prot -?-?-?-?-?-?-?-?-?-?-?-?- Glucose FHR FuHt Pres Dilation -?-?-?-?-?-?-?-?-?-?-?-?- Effaced St Visit Note 11/18/20 -?-?-?-?-?-?-?-?-?-?-?-?- 12w 1d 151 lb 151 lb 110/60 -?-?-?-?-?-?-?-?-?-?-?-?- 175 -?-?-?-?-?-?-?-?-?-?-?-?- GP - CRL 43mm co nsistent with LMP. 12/27/20 -?-?-?-?-?-?-?-?-?-?-?-?- 17w 5d 149 lb Negative -?-?-?-?-?-?-?-?-?-?-?-?- Negative 160 -?-?-?-?-?-?-?-?-?-?-?-?- SM- no vb crampi ng, co nausea persistent, interested in homeopathic. co depression symptoms- start zoloft and counseling. ordered compression stockings 01/28/21 -?-?-?-?-?-?-?-?-?-?-?-?- 22w 2d 151 lb 104/60 Negative -?-?-?-?-?-?-?-?-?-?-?-?- Negative 150 -?-?-?-?-?-?-?-?-?-?-?-?- SM- no vb crampi ng. 03/14/21 -?-?-?-?-?-?-?-?-?-?-?-?- 28w 5d 158 lb 4 oz 110/60 Nega tive -?-?-?-?-?-?--?-?-?-?-?-?- Negative 135 28 -?-?-?-?-?-?-?-?-?-?-?-?- GP - no LOF, VB, DFM, ctx. 04/11/21 -?-?-?-?-?-?-?-?-?-?-?-?- 32w 5d 164 lb 4 oz 118/70 Nega tive -?-?-?-?-?-?-?-?-?-?-?-?- Negative 135 32 -?-?-?-?-?-?-?-?-?-?-?-?- SM- no vb lof go od fm on reulgar ctx 04/25/21 -?-?-?-?-?-?-?-?-?-?-?-?- 34w 5d 165 lb Negative -?-?-?-?-?-?-?-?-?-?-?-?- Negative 135 34 -?-?-?-?-?-?-?-?-?-?-?-?- SM- no vb lof go od fm no reuglar ctx. had episode of abdominal pain and nausea, vomiting, 10 days ago, has happened twice before. d eclined evaluation tody abut agreed to evaluation if symptoms recur. 05/16/21 -?-?-?-?-?-?-?-?-?-?-?-?- 37w 5d 167 lb 6 oz 110/78 Nega tive -?-?-?-?-?-?-?-?-?-?-?-?- Negative 125 36 Cephalic 0 -?-?-?-?-?-?-?-?-?-?-?-?- 0 -3 JV- no lof , vaginal bleeding, or dec fm gbs collected. 05/23/21 -?-?-?-?-?-?-?-?-?-?-?-?- 38w 5d 169 lb 98/64 -?-?-?-?-?-?-?-?-?-?-?-?- 125 37 Cephalic -?-?-?-?-?-?-?-?-?-?-?-?- SM- no vb lof go od fm no reuglar ctx 05/26/21 -?-?-?-?-?-?-?-?-?-?-?-?- 39w 1d 166 lb 14.239 oz 95/ 59 92/53 92/53 104/65 108/64 102/57 123/81 105/36 100/60 97/60 97/60 110/60 105/55 104/50 98/40 -?-?-?-?-?-?-?-?-?-?-?-?- -?-?-?-?-?-?-?-?-?-?-?-?- NST FHR Rate Baby A Baseline: 140 ROS Constitutional Constitutional: Reports systems reviewed and no addt'l complaints, except as documented ENT HEENT: Reports systems reviewed and no addt'l complaints, except as documented Cardiovascular Cardiovascular: Reports systems reviewed and no addt'l complaints, except as documented Respiratory/Chest Respiratory/Chest: Reports systems reviewed and no addt'l complaints, except as documented Gastrointestinal Gastrointestinal: Reports systems reviewed and no addt'l complaints, except as documented and nausea; Denies abdominal pain Genitourinary Genitourinary: Reports systems reviewed and no addt'l complaints, except as documented, contractions Details: present and frequency (regular ) and movement Details: present Musculoskeletal Musculoskeletal: Reports systems reviewed and no addt'l complaints, except as documented Integumentary Integumentary: Reports as per HPI Neurologic Neurologic: Reports systems reviewed and no addt'l complaints, except as documented Endocrine Endocrinology: Reports systems reviewed and no addt'l complaints, except as documented Vital Signs Vital Signs Vital Signs: 05/26/21 11:41 05/26/21 13:23 05/26/21 13:29 Temperature 98.0 F 97.7 F L 97.7 F L Temperature Source Temporal Temporal Temporal Pulse Rate 109 H 85 85 Respiratory Rate 16 16 16 Respiratory Depth Respiratory Pattern Normal Blood Pressure 95/59 L 92/53 L 92/53 L Blood Pressure [BP] Blood Pressure Mean 71 66 66 Blood Pressure Mean [BP] Blood Pressure Source Monitor Monitor Monitor Blood Pressure Source [BP] Blood Pressure Position Semi-Fowlers Semi-Fowlers Semi-Fowlers Blood Pressure Position [BP] Blood Pressure Location Right Arm Left Arm Left Arm Blood Pressure Location [BP] Baseline BP 95/59 95/59 Pulse Ox 97 97 97 Oxygen Delivery Method Room Air Room Air Room Air 05/26/21 13:45 05/26/21 14:00 05/26/21 14:14 Temperature 97.2 F L 97.5 F L 97.5 F L Temperature Source Temporal Temporal Temporal Pulse Rate 68 83 76 Respiratory Rate 16 16 16 Respiratory Depth Respiratory Pattern Blood Pressure 104/65 108/64 102/57 L Blood Pressure [BP] Blood Pressure Mean 78 78 72 Blood Pressure Mean [BP] Blood Pressure Source Monitor Monitor Monitor Blood Pressure Source [BP] Blood Pressure Position Semi-Fowlers Semi-Fowlers Semi-Fowlers Blood Pressure Position [BP] Blood Pressure Location Left Arm Left Arm Left Arm Blood Pressure Location [BP] Baseline BP 95/59 95/59 95/59 Pulse Ox 98 100 99 Oxygen Delivery Method Room Air Room Air Room Air 05/26/21 14:15 05/26/21 14:29 05/26/21 14:44 Temperature 98.2 F Temperature Source Temporal Pulse Rate 87 Respiratory Rate 16 Respiratory Depth Respiratory Pattern Blood Pressure 123/81 H Blood Pressure [BP] Blood Pressure Mean 95 Blood Pressure Mean [BP] Blood Pressure Source Monitor Blood Pressure Source [BP] Blood Pressure Position Semi-Fowlers Blood Pressure Position [BP] Blood Pressure Location Left Arm Blood Pressure Location [BP] Baseline BP 95/59 95/59 95/59 Pulse Ox 100 Oxygen Delivery Method Room Air 05/26/21 14:45 05/26/21 15:00 05/26/21 15:15 Temperature 98.5 F 98.5 F 98.5 F Temperature Source Temporal Temporal Temporal Pulse Rate 72 77 76 Respiratory Rate 16 16 16 Respiratory Depth Respiratory Pattern Blood Pressure 105/36 L 100/60 97/60 Blood Pressure [BP] Blood Pressure Mean 59 73 72 Blood Pressure Mean [BP] Blood Pressure Source Monitor Monitor Monitor Blood Pressure Source [BP] Blood Pressure Position Semi-Fowlers Semi-Fowlers Semi-Fowlers Blood Pressure Position [BP] Blood Pressure Location Left Arm Left Arm Left Arm Blood Pressure Location [BP] Baseline BP 95/59 95/59 95/59 Pulse Ox 100 100 99 Oxygen Delivery Method Room Air Room Air Room Air 05/26/21 15:25 05/26/21 15:32 05/26/21 16:22 Temperature 98.5 F 98.1 F Temperature Source Temporal Temporal Pulse Rate 74 73 Respiratory Rate 16 16 16 Respiratory Depth Normal Respiratory Pattern Blood Pressure 97/60 Blood Pressure [BP] 105/61 Blood Pressure Mean 72 Blood Pressure Mean [BP] 75 Blood Pressure Source Monitor Blood Pressure Source [BP] Monitor Blood Pressure Position Semi-Fowlers Blood Pressure Position [BP] Semi-Fowlers Blood Pressure Location Left Arm Blood Pressure Location [BP] Left Arm Baseline BP 95/59 Pulse Ox 100 99 97 Oxygen Delivery Method Room Air Room Air Room Air 05/26/21 17:24 05/26/21 17:26 05/26/21 19:40 Temperature 98.0 F 97.4 F L Temperature Source Temporal Temporal Pulse Rate 101 H 87 64 Respiratory Rate 16 16 16 Respiratory Depth Normal Normal Respiratory Pattern Blood Pressure 110/60 105/55 L Blood Pressure [BP] 112/47 L 105/55 L Blood Pressure Mean 76 71 Blood Pressure Mean [BP] 68 71 Blood Pressure Source Monitor Blood Pressure Source [BP] Monitor Monitor Blood Pressure Position Semi-Fowlers Blood Pressure Position [BP] Semi-Fowlers Semi-Fowlers Blood Pressure Location Left Arm Blood Pressure Location [BP] Left Arm Left Arm Baseline BP Pulse Ox 99 99 98 Oxygen Delivery Method Room Air Room Air Room Air 05/26/21 21:26 05/26/21 23:30 05/27/21 03:33 Temperature 97.9 F 97.7 F L 97.6 F L Temperature Source Temporal Temporal Temporal Pulse Rate 69 70 69 Respiratory Rate 14 14 16 Respiratory Depth Normal Normal Respiratory Pattern Blood Pressure 104/50 L 98/40 L Blood Pressure [BP] 96/50 L Blood Pressure Mean 68 59 Blood Pressure Mean [BP] 65 Blood Pressure Source Monitor Monitor Blood Pressure Source [BP] Monitor Blood Pressure Position Supine Semi-Fowlers Blood Pressure Position [BP] Semi-Fowlers Blood Pressure Location Right Arm Right Arm Blood Pressure Location [BP] Right Arm Baseline BP Pulse Ox 97 96 Oxygen Delivery Method Room Air Room Air Room Air Weight Weight: 166 lb 14.239 oz Body Mass Index (BMI) 29.5 Physical Exam Const alert, oriented x3 and healthy appearing Constitutional Narrative: uncomfortable with contractions HEENT normocephalic and moist oral mucous membranes Head and Scalp: atraumatic Neck full ROM, no lymphadenopathy, supple and thyroid normal General: trachea midline Thyroid: thyroid normal Lymph Lymphatic: no lymphadenopathy noted Chest inspection of chest normal Resp normal respiratory effort Cardio regular rate GI normal to inspection, nondistended, normoactive bowel sounds, soft to palpation and non-tender Inspection: gravid external exam normal Bimanual Exam - Vag & Uterus: uterus non-tender Manual OB Exam: estimated gestational size appropriate, presentation cephalic, dilated, effaced and station Extremity normal to inspection General Extremity: Negative for edema Skin no rashes or lesions noted Neuro deep tendon reflexes 2+ bilaterally Motor Exam: strength 5/5 throughout and clonus absent Psych mental status grossly normal Labs Labs Labs: Blood Type A POSITIVE Antibody Screen NEGATIVE Hct 29.3 % (37-47) L Hgb 9.1 g/dL (12.0-15.0) L Obstetrics US Syphilis Total Ab Non-reactive Rubella IgG Antibody Reactive (Nonreactive) Hep Bs Antigen Non-Reactive (Nonreactive) HIV 1&2 Antibody Non-Reactive (Nonreactive) C.trachomatis DNA (PCR) Negative (Negative) Glucose 1 Hr 50 gm 106 mg/dL (70-140) Rhogam given: No Assessment & Plan (1) Previous delivery affecting : COMMENT: Hx c/s x3. Plan RCD. scheduled for 05/30 @ 7:30am (2) Mild anemia: COMMENT: iron supplement (3) Supervision of high risk , antepartum: COMMENT: PRR Minimal labs CLIFFORD 06/01/21 PC:Oz Cheney Nora, Jacob, Spouse:Yamil (4) : QUALIFIERS: Weeks of gestation: 38 weeks Qualified Code(s): Z3A.38 - 38 weeks gestation of COMMENT: neg. GBS, declines genetic, ntd, and carrier screening. anatomy nl (5) delivery delivered: COMMENT: SM RLTCS minimal scar tissue 39 girl Denisa PLAN: plan RLTCS
--- NOTE | 2021-05-27 06:51 | EX.PCM.OBRPT ---
Assessment & Plan (1) delivery delivered: COMMENT: SM RLTCS minimal scar tissue 39 girl Denisa (2) : QUALIFIERS: Weeks of gestation: 38 weeks Qualified Code(s): Z3A.38 - 38 weeks gestation of COMMENT: neg. GBS, declines genetic, ntd, and carrier screening. anatomy nl (3) Supervision of high risk , antepartum: COMMENT: PRR Minimal labs CLIFFORD 06/01/21 PC:Oz Cheeny Nora, Jacob, Spouse:Yamil (4) Mild anemia: COMMENT: iron supplement (5) Previous delivery affecting : COMMENT: Hx c/s x3. Plan RCD. scheduled for 05/30 @ 7:30am Maternal Data Information CLIFFORD Calculator Estimated Delivery Date Method Current WG Current Estimate 06/01/21 LMP (Certain) 39w 2d Other Estimates 06/07/21 Ultrasound #1 38w 3d Final CLIFFORD Source: LMP Details Operative Information Pre-Operative Diagnosis: Previous Post-Operative Diagnosis: same Indications for : Repeat Elective Classification: Scheduled Type of Anesthesia: Spinal Special Medications: none Antibiotic Given: Ancef 2 grams IV x1 Drain: Quiroga to straight drain Estimated Blood Loss: 800 Fluids Replaced: crystalloid Findings Description of Procedure: Spinal anesthesia was placed without difficulty. Quiroga catheter was placed. The patient was placed in the dorsal supine position with leftward tilt. Patient was prepped and draped in the normal sterile fashion. Pfannenstiel skin incision was made with the scalpel and carried through to the underlying layer of fascia with the scalpel. Fascia was nicked in the midline and the incision extended laterally. The rectus bellies were dissected off superiorly and inferiorly with out complication both sharply and bluntly. The peritoneum was entered digitally. The incision was stretched and a low transverse uterine incision was made with the scalpel. The infant's head was delivered atraumatically followed by the anterior and posterior shoulders without complication the rest of the delivered. The cord was clamped and cut and the infant was handed off to awaiting nurse. The placenta was delivered spontaneously immediately following and was noted to be intact and have a three-vessel cord. The uterus was exteriorized cleared of all clots and debris, and the incision was closed in a double layer closure using #1 Monocryl. The ovaries and fallopian tubes were noted to be within normal limits. The uterus was returned to the maternal abdomen and gutters were cleared of all clots and debris. The peritoneum was closed with 3-0 Monocryl in a running fashion. Gloves were changed prior to fascial closure. Fascia was closed with 0 PDS in a running fashion. Subcutaneous tissue was copiously irrigated and the skin was closed with 3-0 Monocryl in a subcuticular fashion. Mepilex dressing was applied without complication. Patient was taken to recovery in stable condition. It was discussed with the patient that based on the clinical information obtained during this encounter, combined with her history, at this time I would recommend cesareans for future deliveries if further pregnancies are desired. Amniotic Membrane Rupture Type: Artificial Amniotic Fluid Description: Clear Placenta Disposition: [facility] Cord Vessel Description: 3 Vessels Cord Entanglement: None Delayed Cord Clamping: Yes Complications Risks of Surgery Discussed w/Patient: Bleeding, Infection, Need for Future C-Sections and Injury to surrounding structure(s) including bowel and bladder Vaginal Delivery Complication Complications: None Admit VTE Documentation VTE Present on Admission: No VTE Mechan Device Prophylaxis: SCD's Procedures Urinary/Genital [id number]: [id number] Delivery [facility]
--- NOTE | 2021-05-27 06:52 | PCM.DC ---
Discharge Instructions Diet Discharge Diet: No restrictions Activity Discharge Activity: May Not Drive (for 2 weeks or while taking narcotic pain medications.), May Shower and May Take a Tub Bath (in 7 days) May shower in (days): 0 May resume sexual activity in: 4-6 weeks Weight Bearing Status: Full weight bearing Dressing / Incision Call your doctor if your incision/area has: Continuous Slow Oozing, Sudden Increased Bleeding, Increased Pain/ Swelling, Increased Redness and Foul Smelling Discharge Call your doctor if you observe: Fever of 101 or Higher and Using more than 1 pad per hour (for 2 hours) Suture Line Care: Avoid Pulling/Pushing and Avoid Pinching/Bending Cleanse incision/area with: Soap & Water and Keep Dressing Clean & Dry Follow Up Care Please Follow Up With: Lali Wakefield MD When: Call [phone] to make an appointment for an incision check in 1-2 weeks. Test Results: Test results from this visit will be discussed in further detail at your follow-up appointment, if applicable. Discharge Plan Admission Admit Date/Time: 05/26/21 10:10 Primary Reason for Your Visit: Attending Provider: Lali Wakefield Primary Care Provider: Chapito Krause Discharge Orders/Prescriptions Prescriptions: New oxycodone-acetaminophen [Percocet] 5-325 mg tablet 1 tab PO Q6H PRN (Reason: pain) 7 Days Qty: 20 RF: 0 naproxen 250 MG tablet 250 - 500 mg PO Q8H PRN PRN (Reason: MILD PAIN) Qty: 30 RF: 1 No Action DHA 200 mg capsule 200 mg PO DAILY RF: 0 sertraline [Zoloft] 50 mg tablet 50 mg PO QDAY RF: 0 Referrals / Follow Up: Chapito Krause DO [Primary Care Provider] - Disposition Disposition (needs filled in before D/C Order can be placed): Home, Self Care
--- NOTE | 2021-05-27 07:49 | PCM.PN.OB ---
Subjective Subjective Patient doing well without complaints. Tolerating PO. Ambulating and voiding without difficulty. Feeding well. Denies chest pain, shortness of breath, calf pain/swelling, fevers, chills, lightheadedness. Objective Data Objective Data Vital Signs: Vital Signs Temp Pulse Resp BP Pulse Ox 97.6 F L 69 16 96/50 L 96 05/27/21 03:33 05/27/21 03:33 05/27/21 03:33 05/27/21 03:33 05/26/21 23:30 Oxygen Delivery Method Room Air Weight: 166 lb 14.239 oz Body Mass Index (BMI) 29.5 Intake & Output: Intake and Output for Last 24 Hours 05/25/21 05/26/21 05/27/21 23:59 23:59 23:59 Intake Total 2531.5 / 2531.5 820 / 820 Output Total 700 / 700 350 / 350 Balance 1831.5 / 1831.5 470 / 470 Lab / Micro Data Result Diagrams: 05/27/21 04:50 Labs: Laboratory Results - last 24 hr 05/26/21 10:30: Chlam trachomat DNA PCR Negative, N.gonorrhoeae DNA (PCR) Negative 05/26/21 10:50: WBC 10.2, RBC 3.84 L, Hgb 10.2 L, Hct 31.9 L, MCV 83.1, MCH 26.6 L, MCHC 32.0, RDW Std Deviation 45.4 H, RDW Coeff of Daja 15.1 H, Plt Count 323, MPV 9.0, Immature Gran % (Auto) 0.600, Neut % (Auto) 85.3 H, Lymph % (Auto) 9.8 L, Andrews % (Auto) 3.5, Eos % (Auto) 0.6, Baso % (Auto) 0.2, Absolute Neuts (auto) 8.7 H, Absolute Lymphs (auto) 1.00, Nucleated RBC % 0 05/26/21 10:50: Blood Type A POSITIVE, Antibody Screen NEGATIVE 05/26/21 10:50: Syphilis Total Ab Non-reactive 05/26/21 10:50: Hep Bs Antigen Non-Reactive, Hepatitis C Antibody Non-Reactive, HIV 1&2 Antibody Non-Reactive 05/27/21 04:50: WBC 8.2, RBC 3.48 L, Hgb 9.1 L, Hct 29.3 L, MCV 84.2, MCH 26.1 L, MCHC 31.1 L, RDW Std Deviation 45.8 H, RDW Coeff of Daja 15.1 H, Plt Count 251, MPV 8.9 Micro: Microbiology 05/26/21 11:10 Nasal Secretion SARS-CoV-2 Antigen (Rapid) - Final Physical Exam Const alert and oriented x3 HEENT normocephalic Eyes PERRL Neck full ROM Resp normal respiratory effort GI soft to palpation GI Narrative: FF below U. Dressing dry and intact Palpation: tender other (appropriately) Assessment & Plan (1) delivery delivered: COMMENT: SM RLTCS minimal scar tissue 39 girl Denisa PLAN: s/p LTCS PPD # 1 1. routine post care 2. breast feeding- support given 3. rh positive 4. rubella immune 5. Plans home today
[2021-05-27 08:05] VITALS: BP 84/44; PULSE 70; RESP 16; TEMP 36.5; O2SAT 97
[2021-05-27] MEDS: Senna/Docusate Sodium 1 Tablet PO (11:10)
[2021-05-27 13:06] VITALS: BP 96/45; PULSE 80; RESP 16; TEMP 36.5; O2SAT 96
[2021-05-27] MEDS: Naproxen 500 MG Tablet PO (14:51)
[2021-05-27 18:25] VITALS: BP 97/55; PULSE 80; RESP 16; TEMP 36.6; O2SAT 97
== END 2021-05-27 19:05 | disposition home or self-care (01) | DRG 788 ==
PROVIDERS: Admitting Provider Obstetrics & Gynecology; PCP Family Medicine; Visit Provider Obstetrics & Gynecology
PROC: 10D00Z1 Extraction of Products of Conception, Low, Open Approach (ICD-10-PCS; CPT 59514; principal; 2021-05-26 11:45)
DX: O34.211 Maternal care for low transverse scar from previous cesarean delivery (principal); O99.02 Anemia complicating childbirth; D64.9 Anemia, unspecified; Z3A.39 39 weeks gestation of pregnancy; Z37.0 Single live birth; Z87.59 Personal history of other complications of pregnancy, childbirth and the puerperium
CPT/HCPCS: 85025; 85027; 86703; 86780; 86803; 86850; 86900; 86901; 87340; 87426; 87491; 87591; 99218; J7120; A4216; G0378; J2405

== ENCOUNTER → 2023-02-05 | Outpatient (CLI) | payer OTHER, SELFPAY ==
[2023-02-08 22:07] LABS: Chlamydia By Nucleic Acid AMP Negative (Negative); Gonococcus By Nucleic Acid AMP Negative (Negative)
[2023-02-11 17:10] LABS: HPV Reflexed? NOT INDICATED
== END | disposition home or self-care (01) ==
PROVIDERS: PCP Family Medicine; Referring Provider Registered Nurse; Visit Provider Registered Nurse
DX: Z34.90 Encounter for supervision of normal pregnancy, unspecified, unspecified trimester (principal)
CPT/HCPCS: 87491; 87591; 88175; G0145

== ENCOUNTER 2023-02-09 12:20 | Day surgery (SDC) | payer SELFPAY, OTHER ==
[2023-02-09] VITALS (7 sets, daily range): BP systolic 81–111; BP diastolic 45–60; PULSE 61–75; RESP 16–18; TEMP 36.2–36.8; O2SAT 97–100; BMI 27.3
--- NOTE | 2023-02-09 12:35 | HP.PCM_ITS ---
History and Physical Date of Admission: 02/09/23 [facility] [address] [place] [address] OFFICE VISIT Date of Service: 02/05/23 MR#: [id number] Acct: [id number] Name: GAMALIEL BOWIE Rep #: [id number] : 1995 Provider: ZAY Miramontes Age/Sex: 27/F Location: [facility] [place] Status: Signed Intake Vital Signs 07/09/2213:51 02/05/2314:10 02/05/2315:43 Height 5 ft 4 in 5 ft 4 in 5 ft 4 in Weight: 161 lb 2 oz BMI 27.6 27.6 BP 124/76 H 124/76 H Intake Visit Reasons: NOB LMP 11/11, pt declined sooner appt Allergies No Known Allergies Allergy (Verified 02/05/23 14:10) Medications docosahexaenoic acid 200 mg capsule ( DHA) 200 mg PO DAILY Check with primary doctor 03/15/19 [History Confirmed 02/05/23] misoprostol 200 mcg tablet (Cytotec) 800 mcg (4 x 200 mcg) PO .complex #8 tabs 02/05/23 [Rx Confirmed 02/05/23] oxycodone-acetaminophen 5 mg-325 mg tablet (Percocet) 1 tab PO Q6H 7 days #10 tabs 02/05/23 [Rx Confirmed 02/05/23] PFSH Medical History (Updated 02/05/23 @ 16:28 by Milla Miramontes CNM) Anxiety Chest pain Mild anemia Post-dates depression Seizures SOB (shortness of breath) Superficial varicosities Surgical History (Updated 02/05/23 @ 14:20 by Milla Miramontes CNM) Previous delivery affecting Previous section Family History Grandmother Cancer Social History Smoking Status: Never smoker alcohol intake: never substance use type: does not use caffeine: No additional social history: -Yamil HPI NOB LMP 11/11, pt declined sooner appt Details: GAMALIEL BOWIE is a 27 year old who presents LMP11/11/2022 for NOB visit. CLIFFORD based on LMP 08/18/2023 ultrasound at bedside demonstrated CRL 3.23 10w 1 day with no FHR. Dr. Wakefield consulted and confirmed diagnosis of missed AB. History 6 Elective abortions Hx Para 5 Spontaneous abortions 1 Hx # Term Pregnancies Ectopic pregnancies Hx # Pregnancies Multiple births # of living children 5 Past Pregnancies Del. Date Name GA/Weeks Outcome Route Bth Weight Gen Labor Lgth Anesthesia Del Locatn Provider FOB 09/15/14 Noni 42 live - full term 7lbs 6oz Female [facility] Dr. Nelida Lobo 01/03/16 Oz 43 live - full term 7lbs 4oz Male [facility] Dr. Poppy Lobo 11/17/17 Marilia 42 live - full term 7lbs 11oz Female spinal [facility] Dr. Ofelia Lobo 06/22/19 David 41 live - full term 8lbs 8oz Male spinal [facility] SERENA RLTCS 05/26/21 Denisa 39 live - full term 6lbs 11oz Fe male [address] [facility] SM Delivery Date: 09/15/14 Last Updated by: Argentina Yee No issues during or delivery Delivery Date: 01/03/16 Last Updated by: Argentina Yee Placenta Abruption Delivery Date: 11/17/17 Last Updated by: Argentina Yee Was told she could not be induced due to history of placenta abruption. No issues with delivery. Delivery Date: 05/26/21 Last Updated by: Jackie Kelly minimal scar tissue Exam Const General: cooperative, healthy appearing, comfortable and no acute distress Neck Neck: normal visual inspection, full ROM and no lymphadenopathy Thyroid: thyroid normal Chest Chest palpation & inspection: normal inspection of the chest Breast inspection: normal inspection of the breasts and normal inspection of the axillae Resp Effort & Inspection: normal respiratory effort, able to speak in complete sentences and symmetric chest movement GI Inspection: normal to inspection Palpation: soft External Female Exam: normal external appearance and normal appearance of the urethra Urethra: normal appearance of the urethra Speculum Exam - Vagina: normal appearance of the vagina Speculum Exam - Cervix: normal appearance of the cervix Bimanual Exam- Vagina & Uterus: uterine size normal (consistent with dates of ) OB/External & Speculum: no bleeding Skin General: rashes and/or lesions noted Neuro General: patient alert, patient awake and patient oriented x3 Psych Appearance: grossly normal and well kempt Coding Level of Care Code Off vis,est,level 3 Diagnoses Missed O02.1 Assessment and Plan Assessment and Plan (1) Missed : Status: Acute Comment: no FHR on ultrasound. discussion with pt and by , desires medication management. will f/u in office next wednesday. Orders: Orders HIV - [facility] Today Z34.90 - Encounter for supervision of normal , unspecified, unspecified trimester Milla Miramontes CNM Type & Screen Today Z34.90 - Encounter for supervision of normal , unspecified, unspecified trimester Milla Miramontes CNM Rubella IgG Today Z34.90 - Encounter for supervision of normal , unspecified, unspecified trimester Milal Miramontes CNM Hepatitis C Antibody Today Z34.90 - Encounter for supervision of normal , unspecified, unspecified trimester Milla Miramontes CNM Hepatitis B Surface Antigen Today Z34.90 - Encounter for supervision of normal , unspecified, unspecified trimester Milla Miramontes CNM Culture, Urine Today Z34.90 - Encounter for supervision of normal , unspecified, unspecified trimester Milla Miramontes CNM Syphilis Antibodies Today Z34.90 - Encounter for supervision of normal pre gnancy, unspecified, unspecified trimester Milla Miramontes CNM Chlamydia/GC DASH aptima Today Z34.90 - Encounter for supervision of normal , unspecified, unspecified trimester Milla Miramontes CNM PAP I-G w/rfx hrHPV-Aptima Today Z12.4 - Encounter for screening for malignant neoplasm of cervix Milla Miramontes CNM Medications: New misoprostol (Cytotec) 800 mcg (4 x 200 mcg) PO .complex [address] Lali Wakefield MD oxycodone-acetaminophen 5-325 mg (Percocet) 1 TAB PO Q6H 10 tabs 0RF 7 days R10.2 - Pelvic and perineal pain Dr. Lali Wakefield MD 02/05/23 [id number] <Electronically signed by Milla Miramontes CNM> Date [facility] [address] [place] [address] OFFICE VISIT Date of Service: 02/05/23 MR#: [id number] Acct: [id number] Name: GAMALIEL BOWIE Rep #: [id number] : 1995 Provider: ZAY Miramontes Age/Sex: 27/F Location: [facility] [place] Status: Signed Intake Vital Signs 07/09/2213:51 02/05/2314:10 02/05/2315:43 Height 5 ft 4 in 5 ft 4 in 5 ft 4 in Weight: 161 lb 2 oz BMI 27.6 27.6 BP 124/76 H 124/76 H Intake Visit Reasons: NOB LMP 11/11, pt declined sooner appt Allergies No Known Allergies Allergy (Verified 02/05/23 14:10) Medications docosahexaenoic acid 200 mg capsule ( DHA) 200 mg PO DAILY Check with primary doctor 03/15/19 [History Confirmed 02/05/23] misoprostol 200 mcg tablet (Cytotec) 800 mcg (4 x 200 mcg) PO .complex #8 tabs 02/05/23 [Rx Confirmed 02/05/23] oxycodone-acetaminophen 5 mg-325 mg tablet (Percocet) 1 tab PO Q6H 7 days #10 tabs 02/05/23 [Rx Confirmed 02/05/23] PFSH Medical History (Updated 02/05/23 @ 16:28 by Milla Miramontes CNM) Anxiety Chest pain Mild anemia Post-dates depression Seizures SOB (shortness of breath) Superficial varicosities Surgical History (Updated 02/05/23 @ 14:20 by Milla Miramontes CNM) Previous delivery affecting Previous section Family History Grandmother Cancer Social History Smoking Status: Never smoker alcohol intake: never substance use type: does not use caffeine: No additional social history: -Yamil HPI NOB LMP 11/11, pt declined sooner appt Details: GAMALIEL BOWIE is a 27 year old who presents LMP11/11/2022 for NOB visit. CLIFFORD based on LMP 08/18/2023 ultrasound at bedside demonstrated CRL 3.23 10w 1 [address] with no FHR. Dr. Wakefield consulted and confirmed diagnosis of missed AB. History 6 Elective abortions Hx Para 5 Spontaneous abortions 1 Hx # Term Pregnancies Ectopic pregnancies Hx # Pregnancies Multiple births # of living children 5 Past Pregnancies Del. Date Name GA/Weeks Outcome Route Bth Weight Gen Labor Lgth Anesthesia Del Locatn Provider FOB 09/15/14 Noni 42 live - full term 7lbs 6oz Female [facility] Dr. Nelida Lobo 01/03/16 Oz 43 live - full term 7lbs 4oz Male [facility] Dr. Poppy Lobo 11/17/17 Marilia 42 live - full term 7lbs 11oz Female spinal [facility] Dr. Ofelia Lobo 06/22/19 David 41 live - full term 8lbs 8oz Male spinal [facility] SERENA RLTCS 05/26/21 Denisa 39 live - full term 6lbs 11oz Fe male [address] [facility] SM Delivery Date: 09/15/14 Last Updated by: Argentina Yee No issues during or delivery Delivery Date: 01/03/16 Last Updated by: Argentina Yee Placenta Abruption Delivery Date: 11/17/17 Last Updated by: Argentina Yee Was told she could not be induced due to history of placenta abruption. No issues with delivery. Delivery Date: 05/26/21 Last Updated by: Jackie Kelly minimal scar tissue Exam Const General: cooperative, healthy appearing, comfortable and no acute distress Neck Neck: normal visual inspection, full ROM and no lymphadenopathy Thyroid: thyroid normal Chest Chest palpation & inspection: normal inspection of the chest Breast inspection: normal inspection of the breasts and normal inspection of the axillae Resp Effort & Inspection: normal respiratory effort, able to speak in complete sentences and symmetric chest movement GI Inspection: normal to inspection Palpation: soft External Female Exam: normal external appearance and normal appearance of the urethra Urethra: normal appearance of the urethra Speculum Exam - Vagina: normal appearance of the vagina Speculum Exam - Cervix: normal appearance of the cervix Bimanual Exam- Vagina & Uterus: uterine size normal (consistent with dates of ) OB/External & Speculum: no bleeding Skin General: rashes and/or lesions noted Neuro General: patient alert, patient awake and patient oriented x3 Psych Appearance: grossly normal and well kempt Coding Level of Care Code Off vis,est,level 3 Diagnoses Missed O02.1 Assessment and Plan Assessment and Plan (1) Missed : Status: Acute Comment: no FHR on ultrasound. discussion with pt and by dariusz Carranza medication management. will f/u in office next wednesday. Orders: Orders HIV - [facility] Today Z34.90 - Encounter for supervision of normal , unspecified, unspecified trimester Milla Miramontes CNM Type & Screen Today Z34.90 - Encounter for supervision of normal , unspecified, unspecified trimester Milla Miramontes CNM Rubella IgG Today Z34.90 - Encounter for supervision of normal , unspecified, unspecified trimester Milla Miramontes CNM Hepatitis C Antibody Today Z34.90 - Encounter for supervision of normal , unspecified, unspecified trimester Milla Miramontes CNM Hepatitis B Surface Antigen Today Z34.90 - Encounter for supervision of normal , unspecified, unspecified trimester Milla Miramontes CNM Culture, Urine Today Z34.90 - Encounter for supervision of normal , unspecified, unspecified trimester Milla Miramontes CNM Syphilis Antibodies Today Z34.90 - Encounter for supervision of normal , unspecified, unspecified trimester Millaximena Miramontes CNM Chlamydia/GC DASH aptima Today Z34.90 - Encounter for supervision of normal , unspecified, unspecified trimester Milla Miramontes CNM PAP I-G w/rfx hrHPV-Aptima Today Z12.4 - Encounter for screening for malignant neoplasm of cervix Milla Miramontes CNM Medications: New misoprostol (Cytotec) 800 mcg (4 x 200 mcg) PO .complex [address] Lali Wakefield MD oxycodone-acetaminophen 5-325 mg (Percocet) 1 TAB PO Q6H 10 tabs 0RF 7 days R10.2 - Pelvic and perineal pain Dr. Lali Wakefield MD 02/05/23 6947 discussed options and now chose surgical intervention After discussing the patient's diagnosis and treatment plan options, patient wishes to proceed with surgical management. I have discussed with the patient the risks, benefits, and alternatives of the procedure which include but are not limited to risks of anesthesia, bleeding, infection, possible damage to bowel, bladder, or surrounding vasculature which could lead to additional surgery to evaluate any complications. Patient agrees to procedure and wishes to proceed. ACOG/uptodate references given for additional information regarding procedure. UPDATE- I have seen the patient and performed any clinically relevant updates to the history and physical exam. Lali Wakefield MD <Electronically signed by Milla Miramontes CNM> Date
[2023-02-09 13:13] LABS: Hematocrit 37.6 % (37-47); Hemoglobin 12.5 g/dL (12.0-15.0); Mean Corp Hgb Conc 33.2 g/dL (32-36); Mean Corpuscular Hgb 28.9 pg (27.0-32.0); Mean Corpuscular Volume 86.8 fL (81-99); Mean Platelet Vol. 8.6 fl (6.2-12.0); Platelet Count 293 K/mm3 (150-450); RBC Distribution Width CV 12.4 % (11.6-14.6); RBC Distribution Width SD 39.6 fl (35.1-43.9); Red Blood Count 4.33 M/mm3 (4.2-5.4); White Blood Count 6.5 K/mm3 (4.4-11.0)
[2023-02-09] MEDS: Doxycycline 100 MG CAPSULE PO (13:30)
[2023-02-09] MEDS: Lactated Ringers 1,000 ML 15 ML IV (13:30)
--- NOTE | 2023-02-09 14:00 | POC_PTH ---
PATIENT: GAMALIEL BOWIE [place] [facility] [place][id number] AGE/SX: 27/F ROOM: RE02/09/[address]: Dr. Lali Wakefield MD : 1995 BED: DIS: 02/09/2023 SPEC #: [id number] RECD: 02/09/23 14:41 STATUS: NADIA JOSE ALEJANDRO #: [id number] ALFREDO: 02/09/23 14:[address]: Lali Wakefield DEPT: SURGICAL PATHOLOGY RECD BY: Cristina Saleh ENTERED: 02/10/23 07:13 SP TYPE: PROD CONC OTHR DR: Dr. Chapito Krause DO Tissues: Product of conception, NOS Procedures: Surgery Specimen Level IV HEADER OPERATION: Suction dilation and curettage PRE-OP DIAGNOSIS: Missed TISSUE SUBMITTED: Products of conception MICROSCOPIC DIAGNOSIS Endometrium, curettage: Chorionic villi, decidualized stroma and trophoblastic cells consistent with products of conception. AM:rico 02/11/2023 MICROSCOPIC DESCRIPTION Slides are reviewed. GROSS DESCRIPTION Received in fixative is one container labeled with the patient's name and designated products of conception. The specimen consists of multiple pieces of hemorrhagic soft tissue that in aggregate measure 7.0 x 7.0 x 2.0 cm. A few fragments of placental tissue are also noted. tissue is not identified. Fur Sorter tissue is submitted in two cassettes. The specimen is returned to patient as per protocol. / SJ:rico 02/10/2023 TC:5 CPT: 04341
[2023-02-09] MEDS: Lidocaine 1% (30 ml sdv) 30 ML Vial (14:24)
--- NOTE | 2023-02-09 15:53 | PCM.OPRPT ---
Problems Associated Problem List Diagnoses (1) Missed : Report of Operation Date of Procedure: 02/09/23 Pre-Operative Diagnosis: see problem list Post-Operative Diagnosis: same Surgery/Procedure Performed:: Suction dilation and curettage Description of Surgical Findings:: no FHT present, Nonviable 10 weeks Surgeon: Lali Wakefield breastfeeding program coordinator: None Type of Anesthesia: Local MAC Special Medications: none Specimen's removed: POC Drains: none Estimated Blood Loss (mL): 50 Fluids Replaced: crystalloid Description of Procedure: Patient was taken to the operating room and placed under MAC local anesthesia. She was prepped and draped in the normal sterile fashion the dorsal lithotomy position. Bladder was drained of clear urine and anterior lip of the cervix was grasped and the uterus sounded to 11cm. Cervix was progressively dilated to allow passage of a 11mm suction curette. Progressive passes were made removing the retained products of conception without complication. Sharp curettage confirmed complete removal of the retained products. All instruments were removed from the vagina and excellent hemostasis was noted and the patient was taken to recovery in stable condition. Grafts/Implants Used: none Complications none Admit VTE Documentation VTE Present on Admission: No VTE Mechan Device Prophylaxis: SCD's Procedures Urinary/Genital 52xxx-59xxx: 51095 Trmt of incomplete Ab, any TM
--- NOTE | 2023-02-09 15:53 | PCM.DC ---
Discharge Instructions Diet Discharge Diet: No restrictions Activity Discharge Activity: Return to Normal Activity, May Shower and May Take a Tub Bath (after 1 week) May resume sexual activity in: 1-2 weeks Weight Bearing Status: Weight bearing as tolerated Lifting Restrictions: none Dressing / Incision Call your doctor if you observe: Fever of 101 or Higher, Using more than 1 pad per hour, Shortness of breath and Uncontrolled pain Follow Up Care Please Follow Up With: Lali Wakefield MD When: Call [phone] to schedule appointment. Test Results: Test results from this visit will be discussed in further detail at your follow-up appointment, if applicable. Discharge Plan Admission Attending Provider: Lali Wakefield Primary Care Provider: Chapito Krause Discharge Orders/Prescriptions Prescriptions: No Action DHA 200 mg capsule 200 mg PO DAILY Other Ambulatory Orders: CBC-Complete Blood Cnt No Diff (Routine) Timeframe: 20230209 Facility: [facility] - Location: Laboratory Ordered By: Dr. Lali Wakefield Type & Screen - PAT ONLY (Routine) Timeframe: 20230209 Facility: [facility] - Location: Laboratory Ordered By: Dr. Lali Wakefield Referrals / Follow Up: Chapito Krause DO [Primary Care Provider] - Disposition Disposition (needs filled in before D/C Order can be placed): Home, Self Care
== END 2023-02-09 16:30 | disposition home or self-care (01) ==
LOC: SDC 12:23 → AC 12:23
PROVIDERS: PCP Family Medicine; Referring Provider Obstetrics & Gynecology; Visit Provider Obstetrics & Gynecology
PROC: (CPT 59812; principal; 2023-02-09 13:45)
DX: O03.4 Incomplete spontaneous abortion without complication (principal)
CPT/HCPCS: 59812; 01965; 85027; 86850; 86900; 86901; 88305; J7120; J2405

== ENCOUNTER → 2023-07-23 | Outpatient (CLI) | payer OTHER, SELFPAY ==
--- OUTSIDE RECORDS SUMMARY | 2023-07-23 16:34 | XMS RPT_ITS | CCD ---
Author Name Unknown Address [address] [place] [address] Organization [facility] Care Team Providers Care Nursing Assoc Name Role Phone ADRIEN MEJIA Admitting Unavailable ROBERTO, ADRIEN Attending Unavailable ROBERTO, ADRIEN Primary Care Unavailable CONSUELO RINCON Consulting Unavailable PROVIDER, UNKNOWN Consulting Unavailable Encounters Encounter Date Encounter Type Care Provider Facility Start: 10-20-2018 Patient encounter procedure ADRIEN MEJIA [facility] Summary Purpose Family History No Family History [...] BE BASED ON THE PRIMARY CLINICAL RECORDS. [employer] [facility]. provides no warranty or guarantee of the accuracy or completeness of information in this document.
[2023-07-27 06:09] LABS: Chlamydia By Nucleic Acid AMP Negative (Negative); Gonococcus By Nucleic Acid AMP Negative (Negative)
== END | disposition home or self-care (01) ==
LOC: LABSPEC 16:32
PROVIDERS: PCP Family Medicine; Referring Provider Registered Nurse; Visit Provider Registered Nurse
DX: Z34.90 Encounter for supervision of normal pregnancy, unspecified, unspecified trimester (principal)
CPT/HCPCS: 87086; 87491; 87591

== ENCOUNTER → 2023-08-20 | Outpatient (CLI) | payer OTHER, SELFPAY ==
--- OUTSIDE RECORDS SUMMARY | 2023-07-23 14:01 | XMS RPT_ITS | CCD ---
Author Name Unknown Address [address] [place] [address] Organization [facility] Care Team Providers Care Concrete Building Assembler Name Role Phone ADRIEN MEJIA Admitting Unavailable ROBERTO, ADRIEN Attending Unavailable ROBERTO, ADRIEN Primary Care Unavailable CONSUELO RINCON Consulting Unavailable PROVIDER, UNKNOWN Consulting Unavailable Encounters Encounter Date Encounter Type Care Provider Facility Start: 10-20-2018 Patient encounter procedure ADRIEN MEJIA [facility] Summary Purpose Family History No Family History Records Found Advance Directives No Advanced Directives Records Found Additional Source Comments INFORMATION SOURCE (unrecogn ized section and content) FOR RECORDS PERTAINING TO PATIENTS WHO ARE OR HAVE BEEN ENROLLED IN A CHEMICAL DEPENDENCY/SUBSTANCEABUSE PROGRAM, SOME INFORMATION MAY BE OMITTED. This clinical summary was aggregated from multiple sources. Caution should be exercised in using it in the provision of clinical care. This summary normalizes information from multiple sources, and as a consequence, information in this document may materially change the coding, format and clinical context of patient data. In addition, data may be omitted in some cases. CLINICAL DECISIONS SHOULD BE BASED ON THE PRIMARY CLINICAL RECORDS. [employer] [facility]. provides no warranty or guarantee of the accuracy or completeness of information in this document.
[2023-08-20 15:04] LABS: Absolute Lymphocyte Count 1.95 X10^3/uL (0.83-4.51); Absolute Neutrophil Count 4.7 X10^3/uL (2.0-7.7); Basophil# 0.01 X10^3/uL; Basophil% 0.1 % (0-1); Eosinophil# 0.13 X10^3/uL; Eosinophils% 1.8 % (0-5); Hematocrit 36.3 % (37-47); Hemoglobin 12.4 g/dL (12.0-15.0); Lymphocyte # 1.95 X10^3/ul (0.83-4.51); Lymphocyte % 27.1 % (19-41); Mean Corp Hgb Conc 34.2 g/dL (32-36); Mean Corpuscular Hgb 29.5 pg (27.0-32.0); Mean Corpuscular Volume 86.2 fL (81-99); Mean Platelet Vol. 9.3 fl (6.2-12.0); Monocyte# 0.35 X10^3/uL; Monocyte% 4.9 % (0-10); NRBC Flagged by Analyzer 0 % (0-5); Neutrophil # 4.74 X10^3/uL (2.7-7.7); Neutrophil % 65.8 % (47-70); Platelet Count 340 K/mm3 (150-450); RBC Distribution Width CV 12.9 % (11.6-14.6); Red Blood Count 4.21 M/mm3 (4.2-5.4); White Blood Count 7.2 K/mm3 (4.4-11.0)
--- OUTSIDE RECORDS SUMMARY | 2023-08-20 15:09 | XMS RPT_ITS | CCD ---
Author Name Unknown Address [address] [place] [address] Organization [facility] Care Team Providers Care Solids Control Technician Name Role Phone ADRIEN MEJIA Admitting Unavailable ROBERTO, ADRIEN Attending Unavailable ROBERTO, ADRIEN Primary Care Unavailable CONSUELO RINCON Consulting Unavailable PROVIDER, UNKNOWN Consulting Unavailable Encounters Encounter Date Encounter Type Care Provider Facility Start: 10-20-2018 Patient encounter procedure ADRIEN MEJIA [facility] Summary Purpose Family History No Family [...] BE BASED ON THE PRIMARY CLINICAL RECORDS. [employer] [facility]. provides no warranty or guarantee of the accuracy or completeness of information in this document.
[2023-08-20 16:12] LABS: HIV - WCH Non-Reactive (Nonreactive); Hepatitis B Surface Antigen Non-Reactive (Nonreactive); Hepatitis C Antibody Non-Reactive (Nonreactive); Rubella IgG Reactive (Nonreactive); Syphilis Antibodies Non-reactive
== END | disposition home or self-care (01) ==
LOC: LAB 14:11
PROVIDERS: PCP Family Medicine; Referring Provider Registered Nurse; Visit Provider Registered Nurse
DX: Z34.90 Encounter for supervision of normal pregnancy, unspecified, unspecified trimester (principal)
CPT/HCPCS: 36415; 85025; 86703; 86762; 86780; 86803; 86850; 86900; 86901; 87340

== ENCOUNTER → 2023-09-30 | Outpatient (CLI) | payer SELFPAY, OTHER ==
--- NOTE | 2023-09-30 12:22 | US_ITS ---
STUDY: SECOND AND THIRD TRIMESTER OBSTETRICAL ULTRASOUND REASON FOR EXAM: Female, 28 years old anatomy scan LMP: May 18, 2023. TECHNIQUE: Transabdominal and Transvaginal TECHNICAL QUALITY: Adequate. PRIOR ULTRASOUND: None. FINDINGS: There is a single intrauterine fetus. The fetus is in an transverse lie with the head on the maternal left side. There is demonstrated cardiac activity with a heart rate of 152 bpm. There is a normal amniotic fluid volume. The largest amniotic fluid pocket measures 5.2 cm x 4 cm. The amniotic fluid index (FRANCES) is within normal limits. The placenta is posterior in location and is not low lying. There are Grade 0 placental changes. The cervix measures 4.3 cm in length. The bilateral adnexal regions are normal. BIOMETRY: BPD: 4.43 cm: 19 weeks, 3 days HC: 16.64 cm: 19 weeks, 2 days AC: 14.67 cm: 20 weeks, 0 days FL: 2.77 cm: 8 weeks, 3 days CI: 76.7% FL/BPD: 62.6% FL/HC: FL/AC: 18.9% HC/AC: 1.13 age by current US: 19 weeks, 1 days. CLIFFORD by current US: February 23, 2024. Estimated weight: 287 grams, +/- 43 grams, 47 %. Age by LMP: 19 weeks, 2 days. CLIFFORD by LMP: February 22, 2024. ANATOMY: Gender: Indeterminant Cranium: Normal lateral ventricles. Normal choroid plexus. Normal cerebellum. Normal cisterna magna. Normal face, nose and lips. Chest: Normal 4-chamber heart. Abdomen/Pelvis: Normal diaphragm. Normal stomach. Normal abdominal wall. Normal cord insertion. Normal 3 vessel cord. Normal kidneys. Normal bladder. Spine: Normal cervical spine. Normal thoracic spine. Normal lumbar spine. Normal sacrum. Extremities: Normal bilateral upper extremities. Normal bilateral lower extremities. IMPRESSION: Single live intrauterine gestation with a mean gestational age of 19 weeks and 1 day. Electronically Signed: Ant Greene MD at 15:03 EDT , STUDY: FIRST TRIMESTER OBSTETRICAL ULTRASOUND REASON FOR EXAM: Female, 28 years old . Cervical length measurement. LMP: May 18, 2023. TECHNIQUE: Transvaginal TECHNICAL QUALITY: Adequate. PRIOR ULTRASOUND: None. FINDINGS: Cervical length measures 4.3 cm. US/OB Anatomy w/ Transvaginal IMPRESSION: Cervical length measures 4.3 cm. Electronically Signed: Ant Greene MD at 15:04 EDT ,
== END | disposition home or self-care (01) ==
PROVIDERS: PCP Family Medicine; Referring Provider Obstetrics & Gynecology; Visit Provider Obstetrics & Gynecology
DX: O09.90 Supervision of high risk pregnancy, unspecified, unspecified trimester (principal); Z3A.00 Weeks of gestation of pregnancy not specified
CPT/HCPCS: 76805; 76817

== ENCOUNTER → 2023-11-15 | Outpatient (CLI) | payer OTHER, SELFPAY ==
[2023-11-15 10:20] LABS: Absolute Lymphocyte Count 1.29 X10^3/uL (0.83-4.51); Basophil# 0.03 X10^3/uL; Basophil% 0.3 % (0-1); Eosinophil# 0.12 X10^3/uL; Eosinophils% 1.3 % (0-5); Hematocrit 29.9 % (37-47); Hemoglobin 9.5 g/dL (12.0-15.0); Lymphocyte # 1.29 X10^3/ul (0.83-4.51); Lymphocyte % 14.4 % (19-41); Mean Corp Hgb Conc 31.8 g/dL (32-36); Mean Corpuscular Volume 88.2 fL (81-99); Mean Platelet Vol. 8.5 fl (6.2-12.0); Monocyte% 4.5 % (0-10); NRBC Flagged by Analyzer 0 % (0-5); Neutrophil # 7.03 X10^3/uL (2.7-7.7); Neutrophil % 78.8 % (47-70); Platelet Count 324 K/mm3 (150-450); RBC Distribution Width CV 13.1 % (11.6-14.6); RBC Distribution Width SD 42.3 fl (35.1-43.9); Red Blood Count 3.39 M/mm3 (4.2-5.4); White Blood Count 8.9 K/mm3 (4.4-11.0)
[2023-11-15 11:13] LABS: Glucose Challenge Gest 1H 50g 91 mg/dL (70-140)
[2023-11-15 17:29] LABS: HIV - WCH Non-Reactive (Nonreactive); Syphilis Antibodies Non-reactive
== END | disposition home or self-care (01) ==
PROVIDERS: PCP Family Medicine; Referring Provider Obstetrics & Gynecology; Visit Provider Obstetrics & Gynecology
DX: O09.90 Supervision of high risk pregnancy, unspecified, unspecified trimester (principal); Z13.1 Encounter for screening for diabetes mellitus; Z3A.00 Weeks of gestation of pregnancy not specified
CPT/HCPCS: 36415; 82950; 85025; 86703; 86780

== ENCOUNTER → 2024-02-02 | Outpatient (CLI) | payer SELFPAY, OTHER | END | disposition home or self-care (01) | PROVIDERS: PCP Family Medicine; Referring Provider Advanced Practice Midwife; Visit Provider Advanced Practice Midwife | DX: O09.90 Supervision of high risk pregnancy, unspecified, unspecified trimester (principal); Z3A.00 Weeks of gestation of pregnancy not specified | CPT/HCPCS: 87081 ==

== ENCOUNTER 2024-02-15 10:21 | Inpatient (IN) | payer SELFPAY, OTHER ==
[2024-02-15] VITALS (17 sets, daily range): BP systolic 74–110; BP diastolic 55–92; PULSE 66–94; RESP 15–18; TEMP 36.2–37.1; O2SAT 96–100; BMI 31.9
--- NOTE | 2024-02-15 | FALS_PTH ---
PATIENT: GAMALIEL BOWIE LOC: WP U#:[id number] AGE/SX: 28/F ROOM: WP007 RE02/15/[address]: Dr. Lali Wakefield MD : 1995 BED: 1 DIS: 02/17/2024 SPEC #: [id number] RECD: 02/15/24 14:39 STATUS: NADIA REYon #: [id number] ALFREDO: 02/15/24 00:[address]: Lali Wakefield DEPT: SURGICAL PATHOLOGY RECD BY: Cristina Saleh ENTERED: 02/16/24 07:02 SP TYPE: FALL TUBES OTHR DR: Dr. Chapito Krause DO Tissues: Fallopian tube Procedures: Surgery Specimen Level II HEADER OPERATION: Tubal ligation PRE-OP DIAGNOSIS: Sterilization TISSUE SUBMITTED: Bilateral fallopian tubes- stitch on left MICROSCOPIC DIAGNOSIS Bilateral fallopian tubes, partial salpingectomy: Completely transected segments of bilateral fallopian tubes, no pathologic diagnosis. SJ: 02/17/2024 MICROSCOPIC DESCRIPTION Slides are reviewed. GROSS DESCRIPTION Received in fixative is one container labeled with the patient's name and designated bilateral fallopian tubes- left tube with suture. The specimen consists of two tubular segments of alexander-pink soft tissue measuring 2.0cm in length and 0.6cm in diameter and 2.0cm in length and 0.7cm in diameter. Suture is present outside the fallopian tube, not in the fallopian tube. Both pieces are serially sectioned and reveal unremarkable cut surfaces. Entire specimen is submitted in two cassettes with each cassette containing one fallopian tube. / GABE: 02/16/2024 TC:4 CPT: 57986 x2
[2024-02-15] MEDS: Lactated Ringers 1,000 ML 999 ML IV ×2 (10:55→19:25)
[2024-02-15 11:02] LABS: Absolute Lymphocyte Count 1.42 X10^3/uL (0.83-4.51); Absolute Neutrophil Count 5.7 X10^3/uL (2.0-7.7); Basophil# 0.02 X10^3/uL; Basophil% 0.3 % (0-1); Eosinophil# 0.09 X10^3/uL; Eosinophils% 1.2 % (0-5); Hematocrit 31.9 % (37-47); Lymphocyte # 1.42 X10^3/ul (0.83-4.51); Lymphocyte % 18.5 % (19-41); Mean Corp Hgb Conc 31.3 g/dL (32-36); Mean Corpuscular Hgb 24.9 pg (27.0-32.0); Mean Corpuscular Volume 79.6 fL (81-99); Monocyte# 0.42 X10^3/uL; Monocyte% 5.5 % (0-10); NRBC Flagged by Analyzer 0 % (0-5); Neutrophil # 5.71 X10^3/uL (2.7-7.7); Neutrophil % 74.1 % (47-70); Platelet Count 310 K/mm3 (150-450); RBC Distribution Width SD 46.1 fl (35.1-43.9); Red Blood Count 4.01 M/mm3 (4.2-5.4); White Blood Count 7.7 K/mm3 (4.4-11.0)
[2024-02-15] MEDS: Acetaminophen 500 MG Tablet 1000 MG PO ×3 (11:15→23:18)
[2024-02-15 11:38] LABS: Syphilis Antibodies Non-reactive
[2024-02-15] MEDS: Lactated Ringers 1,000 ML 150 ML IV (11:55)
[2024-02-15] MEDS: Sodium Citrate/Citric Acid 30 ML UDC PO (12:00)
[2024-02-15] MEDS: Cefazolin 2 GM in 0.9% Normal Saline (100mL Bag) 100 ML IV (12:08)
--- NOTE | 2024-02-15 13:42 | HP.PCM.OB_ITS ---
HPI - General General Date of Admission: 02/15/24 HPI Narrative GAMALIEL BOWIE, is a 28 F who presents for RLTCS prevoius cs x 4 Maternal Data Information CLIFFORD Calculator Estimated Delivery Date Method Current WG Current Estimate 02/22/24 Ultrasound #1 39w 2d Other Estimates 02/15/24 LMP (Certain) 40w 2d PFSH PFSH Medical History (Updated 02/16/24 @ 06:58 by Kylah Mahajan EXPLOSIVE SPECIALIST, EXPLOSIVE SPECIALIST-C) History of miscarriage, currently Trauma Placental abnormality Wears glasses Migraine headache PONV (postoperative nausea and vomiting) Heartburn Non-smoker History of echocardiogram Cardiology follow-up encounter Missed Anxiety Superficial varicosities Seizures Mild anemia depression SOB (shortness of breath) Chest pain Post-dates Home Medications ?Medication ?Instructions ?Recorded ?Last Taken ?Type multivitamin no.47-iron fum 27 cap PO DAILY 07/21/23 Unknown History mg-folate no.1 1 mg-dha 300 mg capsule (PNV-DHA) Allergy/AdvReac Type Severity Reaction Status Date / Time No Known Allergies Allergy Verified 02/15/24 10:19 Family History Grandmother Cancer Surgical History (Updated 02/16/24 @ 07:51 by Kylah Mahajan EXPLOSIVE SPECIALIST, EXPLOSIVE SPECIALIST-C) Hx of section History of gynecologic surgery History of gynecologic surgery Previous section H/O dilation and curettage Previous section Previous delivery affecting Social History adopted: No household members: spouse and children number of children: 5 current occupational status: unemployed current occupation: [employer] current occupational exposures/hazards: No pets and animals: No history of recent travel: No sexually active: Yes Smoking Status: Never smoker alcohol intake: never substance use type: does not use well-balanced diet: daily or most days caffeine: No eating out: rarely or never during the past year weight has: remained stable what type of physical activity do you participate in: other details: CORE frequency: 1-2 times per week duration: < 15 minutes/day paris/catholic: None seatbelt use: sometimes do you feel safe at home: Yes additional social history: -Yamil History 8 Elective abortions Hx Para 5 Spontaneous abortions 2 Hx # Term Pregnancies Ectopic pregnancies Hx # Pregnancies Multiple births # of living children 5 Past Pregnancies Del. Date Name GA/Weeks Outcome Route Bth Weight Infant Gen Labor Lgth Anesthesia Del Locatn Provider FOB 09/15/14 Noni 42 live - full term 7lbs 6oz Female [facility] Dr. Nelida Lobo 01/03/16 Oz 43 live - full term 7lbs 4oz Male [facility] Dr. Poppy Lobo 11/17/17 Marilia 42 live - full term 7lbs 11oz Female spinal [facility] Dr. Ofelia Lobo 06/22/19 David 41 live - full term 8lbs 8oz Male spinal [facility] SERENA RLTCS 05/26/21 Denisa 39 live - full term 6lbs 11oz Female 0 spinal [facility] SM Delivery Date: 09/15/14 Last Updated by: [place] Yee No issues during or delivery Delivery Date: 01/03/16 Last Updated by: [place] Yee Placenta Abruption Delivery Date: 11/17/17 Last Updated by: [place] Yee Was told she could not be induced due to history of placenta abruption. No issues with delivery. Delivery Date: 05/26/21 Last Updated by: Jackie Kelly minimal scar tissue Visit Details Expected Delivery Route/Plan Plans RLTCS with Plans Covid status: [] Flu vaccine: declined Tdap vaccine: declined Rhogam: na LARC form signed: [] movement and labor precautions reviewed. Problem list reviewed and updated with the most current plan of care details and appropriate orders placed. Relevant counseling for the gestational age provided. Continue routine care and follow up unless otherwise noted in visit notes/problem list details OB Flowsheet Initial Weight: Not Recorded Date -?-?-?-?-?-?-?-?-?-?-?-?- EGA Weight BP Urine Prot -?-?-?-?-?-?-?-?-?-?-?-?- Glucose FHR FuHt Pres Dilation -?-?-?-?-?-?-?-?-?-?-?-?- Effaced St Visit Note 07/23/23 -?-?-?-?-?-?-?-?-?-?-?-?- 9w 3d 161 lb 6 oz 99/67 -?-?-?-?-?-?-?-?-?-?-?-?- 190 -?-?-?-?-?-?-?-?-?-?-?-?- kw-CRL not cons with dated. measuring 9.3 weeks today. CLIFFORD changed. declines NIPT 08/20/23 -?-?-?-?-?-?-?-?-?-?-?-?- 13w 3d 158 lb 137/73 -?-?-?-?-?-?-?-?-?-?-?-?- 150 -?-?-?-?-?-?-?-?-?-?-?-?- SM- no vb crmapi ng some STUBBS 09/30/23 -?-?-?-?-?-?-?-?-?-?-?-?- 19w 2d 162 lb 4 oz 108/67 Nega tive -?-?-?-?-?-?-?-?-?-?-?-?- Negative 150 -?-?-?-?-?-?-?-?-?-?-?-?- SM- no vb crampi ng some fm 11/15/23 -?-?-?-?-?-?-?-?-?-?-?-?- 25w 6d 170 lb 2 oz 97/62 Nega tive -?-?-?-?-?-?-?-?-?-?-?-?- Negative 145 25 -?-?-?-?-?-?-?-?-?-?-?-?- KW- no vb/lof/ct x. good fm. KW- no vb/lof/ctx. good fm. 28 week labs today. nl anaotmy. 12/08/23 -?-?-?-?-?-?-?-?-?-?-?-?- 29w 1d 174 lb 8 oz 94/60 Trac e -?-?-?-?-?-?-?-?-?-?-?-?- Negative 155 29 -?-?-?-?-?-?-?-?-?-?-?-?- KW- no vb/lof/ct x. good fm. CBC order for next week-labs reviewed. recommend magnesium at night to help with sleeping and leg cramps. helping move her mother to a new house after appt, lifting restrictions reviewed. 12/23/23 -?-?-?-?-?-?-?-?-?-?-?-?- 31w 2d 179 lb 106/53 Negative -?-?-?-?-?-?-?-?-?-?-?-?- Negative 145 31 -?-?-?-?-?-?-?-?-?-?-?-?- KW- no vb/lof/ct x. good fm. no concerns today. 01/12/24 -?-?-?-?-?-?-?-?-?-?-?-?- 34w 1d 182 lb 104/66 Negative -?-?-?-?-?-?-?-?-?-?-?-?- Negative 140 33 -?-?-?-?-?-?-?-?--?-?-?-?- SM- no vb lof go od fm no regular ctx discussed sterlization, varicose veins 01/24/24 -?-?-?-?-?-?-?-?-?-?-?-?- 35w 6d 184 lb 98/58 Negative -?-?-?-?-?-?-?-?-?-?-?-?- Negative 140 36 Cephalic -?-?-?-?-?-?-?-?-?-?-?-?- SM- no vb lof go od fm no regular ctx 02/02/24 -?-?-?-?-?-?-?-?-?-?-?-?- 37w 1d 183 lb 8 oz 105/69 -?-?-?-?-?-?-?-?-?-?-?-?- 140 37 Cephalic 1 -?-?-?-?-?-?-?-?-?-?-?-?- 40 -3 KW- no vb/ lof/ctx. good fm. feeling SOB most of the day for the last few weeks. CBC ordered. precautions given. GBS today. 02/11/24 -?-?-?-?-?-?-?-?-?-?-?-?- 38w 3d 183 lb 111/70 Negative -?-?-?-?-?--?-?-?-?-?-?-?- Negative 140 38 Cephalic -?-?-?-?-?-?-?-?-?-?-?-?- SM- no vb lof go od fm irreular ctx cs preop done NST FHR Rate Baby A Baseline: 130 Variability:: Moderate Accelerations:: 15 x 15 Decelerations:: None NST Reactive:: Yes FHR Category:: Category I Uterine Activity:: irregular ROS Constitutional Constitutional: Reports systems reviewed and no addt'l complaints, except as documented Eyes Eyes: Denies change in vision ENT HEENT: Reports systems reviewed and no addt'l complaints, except as documented; Denies headache(s) Cardiovascular Cardiovascular: Reports systems reviewed and no addt'l complaints, except as documented; Denies chest pain or dyspnea Respiratory/Chest Respiratory/Chest: Reports systems reviewed and no addt'l complaints, except as documented Gastrointestinal Gastrointestinal: Reports systems reviewed and no addt'l complaints, except as documented; Denies abdominal pain Genitourinary Genitourinary: Reports systems reviewed and no addt'l complaints, except as documented, contractions Details: present (irregular) and movement Details: present; Denies dysuria or genital lesions Musculoskeletal Musculoskeletal: Reports systems reviewed and no addt'l complaints, except as documented Neurologic Neurologic: Reports systems reviewed and no addt'l complaints, except as documented Endocrine Endocrinology: Reports systems reviewed and no addt'l complaints, except as documented Vital Signs Vital Signs Vital Signs: 02/15/24 11:18 Temperature 98.7 F Temperature Source Temporal Pulse Rate 94 Respiratory Rate 16 Blood Pressure 110/65 Blood Pressure Mean 80 Blood Pressure Source Monitor Blood Pressure Position Semi-Fowlers Blood Pressure Location Left Arm Pulse Ox 98 Oxygen Delivery Method Room Air Weight Weight: 186 lb Body Mass Index (BMI) 31.9 Physical Exam Const alert, oriented x3, no apparent distress and healthy appearing HEENT normocephalic and moist oral mucous membranes Head and Scalp: atraumatic Neck full ROM, no lymphadenopathy, supple and thyroid normal General: trachea midline Lymph Lymphatic: no lymphadenopathy noted Chest inspection of chest normal Resp normal respiratory effort Cardio regular rate GI normal to inspection, nondistended, normoactive bowel sounds, soft to palpation and non-tender Inspection: gravid external exam normal Manual OB Exam: estimated gestational size appropriate, presentation cephalic, dilated, effaced and station Extremity normal to inspection General Extremity: Negative for edema Skin no rashes or lesions noted Neuro no focal motor deficits and deep tendon reflexes 2+ bilaterally Motor Exam: strength 5/5 throughout and clonus absent Psych mental status grossly normal Labs Labs Labs: Blood Type A POSITIVE Antibody Screen NEGATIVE Hct 32.3 % (37-47) L Hgb 9.8 g/dL (12.0-15.0) L Obstetrics Ultrasound Syphilis Total Ab Non-reactive Rubella IgG Antibody Reactive (Nonreactive) Hep Bs Antigen Non-Reactive (Nonreactive) Hepatitis C Antibody Non-Reactive (Nonreactive) Chlamydia DNA (DASH) Negative (Negative) N.gonorrhoeae DNA (DASH) Negative (Negative) HIV 1&2 Antibody Non-Reactive (Nonreactive) Glucose 1 Hr 50 gm 91 mg/dL (70-140) Rhogam given: No Assessment & Plan (1) Anemia affecting : COMMENT: repeat in 4 weeks (2) Varicose veins of both lower extremities: (3) Supervision of high-risk : COMMENT: PRR , CLIFFORD 02/15/24, PC Oz Cheney Nora, Jacob, Miriam, Yamil (4) : QUALIFIERS: Weeks of gestation: 38 weeks Qualified Code(s): Z3A.38 - 38 weeks gestation of COMMENT: GSB neg, declined genetic & carrier testing PLAN: Plan proceed with RLTCS and tubal ligation
--- NOTE | 2024-02-15 13:42 | DCINST_ITS ---
Discharge Instructions Follow Up Care Test Results: Test results from this visit will be discussed in further detail at your follow- up appointment, if applicable. Discharge Plan Admission Admit Date/Time: 02/15/24 10:21 Attending Provider: Lali Wakefield Primary Care Provider: Chapito Krause Discharge Orders/Prescriptions Prescriptions: New naproxen 500 mg tablet 500 mg PO BID PRN PRN (Reason: Pain) Qty: 30 1RF No Action PNV-DHA 27 mg iron-1 mg -300 mg capsule PO DAILY Referrals / Follow Up: Chapito Krause DO [Primary Care Provider] - Disposition Disposition (needs filled in before D/C Order can be placed): Home, Self Care
--- NOTE | 2024-02-15 13:42 | EX.PCM.OBRPT ---
Assessment & Plan (1) Delivery by section: COMMENT: RLTCS and bilateral tubal ligation [place] method SM boy (2) Anemia affecting : COMMENT: repeat in 4 weeks (3) Varicose veins of both lower extremities: (4) Supervision of high-risk : COMMENT: PRR , CLIFFORD 02/15/24, PC Oz Cheney, Marilia, David, Denisa, Yamil (5) : QUALIFIERS: Weeks of gestation: 38 weeks Qualified Code(s): Z3A.38 - 38 weeks gestation of COMMENT: GSB neg, declined genetic & carrier testing (6) Sterilization: COMMENT: [place] method Maternal Data Information CLIFFORD Calculator Estimated Delivery Date Method Current WG Current Estimate 02/22/24 Ultrasound #1 39w 2d Other Estimates 02/15/24 LMP (Certain) 40w 2d Final CLIFFORD Source: LMP Details Operative Information Pre-Operative Diagnosis: Previous Post-Operative Diagnosis: same Indications for : Repeat Elective Indications Narrative: Surgeon: Lali Wakefield MD Classification: Scheduled Procedure Type: low transverse Type of Anesthesia: Spinal Special Medications: none Antibiotic Given: Ancef 2 grams IV x1 Drain: Quiroga to straight drain Fluids Replaced: crystalloid Findings Description of Procedure: Spinal anesthesia was placed without difficulty. Quiroga catheter was placed. The patient was placed in the dorsal supine position with leftward tilt. Patient was prepped and draped in the normal sterile fashion. Pfannenstiel skin incision was made with the scalpel and carried through to the underlying layer of fascia with the scalpel. Fascia was nicked in the midline and the incision extended laterally. The rectus bellies were dissected off superiorly and inferiorly with out complication both sharply and bluntly. The peritoneum was entered digitally. The incision was stretched and a low transverse uterine incision was made with the scalpel. The 's head was delivered atraumatically followed by the anterior and posterior shoulders without complication the rest of the infant delivered. The cord was clamped and cut and the infant was handed off to awaiting nurse. The placenta was delivered spontaneously immediately following and was noted to be intact and have a three-vessel cord. The uterus was exteriorized cleared of all clots and debris, and the incision was closed in a single layer closure using #1 Monocryl. The ovaries and fallopian tubes were noted to be within normal limits. bilateral tubal ligation performed via the park[place] method, a loop of tube tied with 2-0 plain suture twice and the connecting portion of tube removed, remaining tube end cauterized. The uterus was returned to the maternal abdomen and gutters were cleared of all clots and debris. The peritoneum was closed with 3-0 Monocryl in a running fashion. Gloves were changed prior to fascial closure. Fascia was closed with 0 PDS in a running fashion. Subcutaneous tissue was copiously irrigated and the skin was closed with 3-0 Monocryl in a subcuticular fashion. Mepilex dressing was applied without complication. Patient was taken to recovery in stable condition. Amniotic Membrane Rupture Type: Artificial Amniotic Fluid Description: Clear Placenta Disposition: [facility] Cord Vessel Description: 3 Vessels Delayed Cord Clamping: Yes Complications Risks of Surgery Discussed w/Patient: Bleeding, Infection, Need for Future C-Sections and Injury to surrounding structure(s) including bowel and bladder Vaginal Delivery Complication Complications: None Admit VTE Documentation VTE Present on Admission: No VTE Mechan Device Prophylaxis: SCD's Multi Select Codes Urinary/Genital Urinary/Genital CPT Codes: 70621 C/S+TL (tubal ligation [place] method) and 04249 Delivery [facility]
[2024-02-15] MEDS: Oxytocin 15 Units/NS 250ml 15 UNITS/250 ML IV.SOLN 83 UNITS IV (13:45)
[2024-02-15] MEDS: Ketorolac 30 MG/ML Syringe IV ×2 (14:01→20:40)
[2024-02-15] MEDS: Lactated Ringers 1,000 ML 100 ML IV (14:03)
[2024-02-15 14:41] LABS: Pathology Specimen OB SEE PATHOLOGY REPORT
[2024-02-15] MEDS: Ondansetron 4 MG/2 ML Vial IV (14:46)
[2024-02-15 19:39] LABS: Absolute Lymphocyte Count 1.53 X10^3/uL (0.83-4.51); Absolute Neutrophil Count 8.4 X10^3/uL (2.0-7.7); Basophil# 0.03 X10^3/uL; Basophil% 0.3 % (0-1); Eosinophil# 0.12 X10^3/uL; Eosinophils% 1.1 % (0-5); Hematocrit 30.8 % (37-47); Hemoglobin 9.5 g/dL (12.0-15.0); Lymphocyte # 1.53 X10^3/ul (0.83-4.51); Lymphocyte % 14.1 % (19-41); Mean Corp Hgb Conc 30.8 g/dL (32-36); Mean Corpuscular Hgb 25.1 pg (27.0-32.0); Mean Corpuscular Volume 81.3 fL (81-99); Mean Platelet Vol. 9.2 fl (6.2-12.0); Monocyte# 0.73 X10^3/uL; Monocyte% 6.7 % (0-10); NRBC Flagged by Analyzer 0 % (0-5); Neutrophil # 8.41 X10^3/uL (2.7-7.7); Neutrophil % 77.4 % (47-70); Platelet Count 301 K/mm3 (150-450); RBC Distribution Width SD 47.2 fl (35.1-43.9); Red Blood Count 3.79 M/mm3 (4.2-5.4); White Blood Count 10.9 K/mm3 (4.4-11.0)
--- NOTE | 2024-02-15 21:05 | NURSING ---
pt attempted to stand at bedside. At this time pt was dizzy and nauseous. Pt is now resting in bed in semi fowlers
[2024-02-16] MEDS: Lactated Ringers 1,000 ML 100 ML IV (00:33)
[2024-02-16] MEDS: Enoxaparin 40 MG/0.4 ML Syringe SC ×2 (00:33→22:09)
[2024-02-16] MEDS: Lactated Ringers 1,000 ML 999 ML IV ×2 (00:35→07:13)
[2024-02-16] MEDS: Ketorolac 30 MG/ML Syringe IV ×2 (02:24→08:14)
[2024-02-16 02:45] VITALS: BP 92/54
[2024-02-16 04:23] VITALS: BP 98/61; PULSE 80; RESP 16; TEMP 36.3; O2SAT 97
[2024-02-16] MEDS: Acetaminophen 500 MG Tablet 1000 MG PO ×3 (05:12→17:23)
[2024-02-16 05:23] LABS: Hematocrit 28.7 % (37-47); Hemoglobin 8.8 g/dL (12.0-15.0); Mean Corp Hgb Conc 30.7 g/dL (32-36); Mean Corpuscular Hgb 25.1 pg (27.0-32.0); Mean Platelet Vol. 9.2 fl (6.2-12.0); Platelet Count 260 K/mm3 (150-450); RBC Distribution Width CV 16.2 % (11.6-14.6); RBC Distribution Width SD 48.3 fl (35.1-43.9); White Blood Count 6.7 K/mm3 (4.4-11.0)
--- NOTE | 2024-02-16 07:49 | PN.OBGYN_ITS ---
Subjective Subjective Patient with issues of dizziness. Currently getting IV fluid bolus.tolerating PO. Quiroga cath still in place. Feeding well. Denies chest pain, shortness of breath, calf pain/swelling, fevers, chills, lightheadedness. Objective Data Objective Data Vital Signs: Vital Signs Temp Pulse Resp BP Pulse Ox O2 Del Method 97.3 F L 80 16 98/61 97 Room Air 02/16/24 04:23 02/16/24 04:23 02/16/24 04:23 02/16/24 04:23 02/16/24 04:23 02/16/24 04:23 Oxygen Delivery Method Room Air Weight: 186 lb Body Mass Index (BMI) 31.9 Intake & Output: Intake and Output for Last 24 Hours 02/14/24 02/15/24 02/16/24 23:59 23:59 23:59 Intake Total 3298.87 / 3298.87 1946.67 / 1946.67 Output Total 900 / 900 1275 / 1275 Balance 2398.87 / 2398.87 671.67 / 671.67 Lab / Micro Data 02/16/24 05:18 Labs: Laboratory Results - last 24 hr 02/15/24 10:55: WBC 7.7, RBC 4.01 L, Hgb 10.0 L, Hct 31.9 L, MCV 79.6 L, MCH 24.9 L, MCHC 31.3 L, RDW Std Deviation 46.1 H, RDW Coeff of Daja 16.0 H, Plt Count 310, MPV 9.0, Immature Gran % (Auto) 0.400, Neut % (Auto) 74.1 H, Lymph % (Auto) 18.5 L, [place] % (Auto) 5.5, Eos % (Auto) 1.2, Baso % (Auto) 0.3, Absolute Neuts (auto) 5.7, Absolute Lymphs (auto) 1.42, Nucleated RBC % 0, Syphilis Total Ab Non-reactive, Blood Type A POSITIVE, Antibody Screen NEGATIVE 02/15/24 19:30: WBC 10.9, RBC 3.79 L, Hgb 9.5 L, Hct 30.8 L, MCV 81.3, MCH 25.1 L, MCHC 30.8 L, RDW Std Deviation 47.2 H, RDW Coeff of Daja 16.0 H, Plt Count 301, MPV 9.2, Immature Gran % (Auto) 0.400, Neut % (Auto) 77.4 H, Lymph % (Auto) 14.1 L, [place] % (Auto) 6.7, Eos % (Auto) 1.1, Baso % (Auto) 0.3, Absolute Neuts (auto) 8.4 H, Absolute Lymphs (auto) 1.53, Nucleated RBC % 0 02/16/24 05:18: WBC 6.7, RBC 3.50 L, Hgb 8.8 L, Hct 28.7 L, MCV 82.0, MCH 25.1 L , MCHC 30.7 L, RDW Std Deviation 48.3 H, RDW Coeff of Daja 16.2 H, Plt Count 260, MPV 9.2 Physical Exam Const alert and oriented x3 General Appearance: cooperative HEENT normocephalic Eyes PERRL Neck full ROM Resp normal respiratory effort GI soft to palpation GI Narrative: FF below U. Dressing dry and intact Palpation: tender other (appropriately) Assessment & Plan (1) Delivery by section: PLAN: Plan s/p LTCS PPD # 1 1. routine post care 2. breast feeding- support given 3. rh positive 4. rubella immune
[2024-02-16 08:06] VITALS: BP 90/58; PULSE 84; RESP 16; TEMP 36.8; O2SAT 97
[2024-02-16] MEDS: Iron Sucrose Complex 200 MG in 0.9% Normal Saline (100mL Bag) 100 ML 220 MG IV (08:19)
[2024-02-16] MEDS: Senna/Docusate Sodium 1 Tablet PO (09:29)
[2024-02-16 12:49] VITALS: BP 97/56; PULSE 86; RESP 16; TEMP 36.9; O2SAT 97
[2024-02-16 15:35] VITALS: BP 102/56; PULSE 74; RESP 16; TEMP 36.4
[2024-02-16] MEDS: Naproxen 500 MG Tablet PO (16:10)
[2024-02-16 20:38] VITALS: BP 107/58; PULSE 72; RESP 16; TEMP 36.2; O2SAT 97
[2024-02-17] MEDS: 0.9% Saline Lock 10 ML Syringe IV (00:13)
[2024-02-17] MEDS: Naproxen 500 MG Tablet PO ×2 (00:13→08:04)
[2024-02-17] MEDS: Acetaminophen 500 MG Tablet 1000 MG PO ×2 (00:13→06:08)
[2024-02-17 02:30] VITALS: BP 97/57; PULSE 66; RESP 16; O2SAT 98
[2024-02-17 06:11] LABS: Hematocrit 32.3 % (37-47); Hemoglobin 9.8 g/dL (12.0-15.0); Mean Corp Hgb Conc 30.3 g/dL (32-36); Mean Corpuscular Hgb 24.8 pg (27.0-32.0); Mean Corpuscular Volume 81.8 fL (81-99); Platelet Count 318 K/mm3 (150-450); RBC Distribution Width CV 16.2 % (11.6-14.6); RBC Distribution Width SD 48.5 fl (35.1-43.9); Red Blood Count 3.95 M/mm3 (4.2-5.4); White Blood Count 8.3 K/mm3 (4.4-11.0)
--- NOTE | 2024-02-17 08:00 | PN.OBGYN_ITS ---
Subjective Subjective Patient doing well without complaints. Tolerating PO. Ambulating and voiding without difficulty. feeding well. Denies chest pain, shortness of breath, calf pain/swelling, fevers, chills, lightheadedness. Objective Data Objective Data Vital Signs: Vital Signs Temp Pulse Resp BP Pulse Ox O2 Del Method 97.2 F L 66 16 97/57 L 98 Room Air 02/16/24 20:38 02/17/24 02:30 02/17/24 02:30 02/17/24 02:30 02/17/24 02:30 02/17/24 02:30 Oxygen Delivery Method Room Air Weight: 186 lb Body Mass Index (BMI) 31.9 Intake & Output: Intake and Output for Last 24 Hours 02/15/24 02/16/24 02/17/24 23:59 23:59 23:59 Intake Total 3298.87 / 3298.87 3521.67 / 3521.67 Output Total 900 / 900 5075 / 5075 Balance 2398.87 / 2398.87 -1553.33 / -1553.33 Lab / Micro Data 02/17/24 05:55 Labs: Laboratory Results - last 24 hr 02/17/24 05:55: WBC 8.3, RBC 3.95 L, Hgb 9.8 L, Hct 32.3 L, MCV 81.8, MCH 24.8 L , MCHC 30.3 L, RDW Std Deviation 48.5 H, RDW Coeff of Daja 16.2 H, Plt Count 318, MPV 9.0 ROS Constitutional Constitutional: Reports systems reviewed and no addt'l complaints, except as documented Cardiovascular Cardiovascular: Reports systems reviewed and no addt'l complaints, except as documented Respiratory/Chest Respiratory/Chest: Reports systems reviewed and no addt'l complaints, except as documented Gastrointestinal Gastrointestinal: Reports systems reviewed and no addt'l complaints, except as documented Physical Exam Const alert, oriented x3 and no apparent distress HEENT Head and Scalp: atraumatic Resp normal respiratory effort GI soft to palpation and non-tender Inspection: incision intact, healing well and drainage (none) Bimanual Exam - Vag & Uterus: uterus non-tender Uterus Palpation: uterus fundus firm (below Umbilicus) Assessment & Plan (1) Sterilization: COMMENT: dari blackwell PLAN: Plan s/p LTCS PPD # 2 1. routine post care 2. breast feeding- support given 3. rh positive
[2024-02-17 09:00] VITALS: BP 117/73; PULSE 91; RESP 16; TEMP 36.6; O2SAT 97
[2024-02-17] MEDS: Senna/Docusate Sodium 1 Tablet PO (09:54)
--- NOTE | 2024-02-17 13:01 | CASEMGMT ---
Social Work Assessment Labor and Delivery Unit Patient Address: [id number] [address] Phone number: [phone] Date of Referral: 02/15/24 Time of Referral:? 1027 Referred By: Dr. Wakefield Date of Intervention: 02/17/24?? Time of Intervention:? 0900 Sw completed psychosocial assessment and acknowledges social work consult due to patient having a parent that is an addict. Sw presented to bedside and introduced self to mother of baby (MOB- Emily) and father of baby (FOB- Yamil). Sw explained reason for sw involvement and completed psychosocial assessment. History obtained from: medical records, MOB and FOB Household composition: Currently residing in the family home is: MOB, TETO, their 5 other children (Noni-9, Oz- 8, Marilia- 6, David- 5 and Denisa- 2), and baby when ready for discharge. Parents deny any concerns or issues with their housing. MOB states that paternal grandparents also live right next door. Patient's parent/guardian status:?GARETH states thats he and TETO have been together for 10 years, after being introduced to each other by family friends. ? Medical History: GARETH is 28 year old, / [place] female who is 8, para 5- now 6 following labor and delivery of . GARETH received routine care during with [facility]. GARETH presented to hospital on 02/15/24 for scheduled repeat at 39 weeks gestation. Baby, Donovan, was born weighing 8lb 6oz with apgars of 9 and 9 at one and five minutes of life, respectfully. GARETH states that she is breast feeding and this is going okay. Baby will be followed by Dr. Krause for pediatrics. ? Educational Status:? Both parents completed 8th grade as is customary in [facility] culture. No reported issues with reading, learning or comprehension. Financial Status: TETO is gainfully employed outside of the home. TETO states that he works psychology department chair as a rodriges and psychology department chair in construction. Supplies:?Parents have obtained all necessary baby supplies, including: car seat, safe sleep space, clothes, diapers and wipes. ? Childcare/Caregiver(s):? MOB states that she will be the primary caregiver to baby along with FOB when he is home and not working. MOB states that paternal grandparents are also great helpers. Transportation:?? Family typically uses an [place] buggy for means of transportation, but they also have access to a marine engine driver when they need to go to doctors appointments or further distances. Programs/Agencies Involved: ???Parents are not connected to any community resources that assist them financially, or any mental health services or supports. Children Services/Legal Issues:???No history of children services involvement, no issues or concerns warranting referral to be made at this time. Behavioral Health Issues: ??Mental Health History:?FOKenisha denies mental health history, GARETH states that she has been diagnosed with anxiety and has also experienced depression. MOB states that she believes that what she actually experiences is not , but more like the baby blues. MOB states that she can notice she starts to feel overwhelmed and sad when she gets home from the hospital, but usually once she is settled into a routine with baby she starts to feel better. MOB states that she can easily feel overstimulated so TETO will help by taking the older kids outside for a while and this always helps her. ?? Substance Use History:?GARETH denies substance use prior to and during . ? Family History:??GARETH reports that her father is an alcoholic and drug addict, stating that she is not sure what drugs he uses. GARETH states that he left her mother and family 15 years ago and she does not know where he is. Mera educated MOB on her genetic disposition and encouraged her to always use healthy and appropriate coping skills opposed to seeking comfort from drugs or alcohol if she is struggling with her mental health. MOB expressed understanding. ??? Drug Screens: ??No drug screens completed. Family/Social Stressors:? MOB denies any issues, concerns or stressors. Support Systems: GARETH states that TETO is her biggest support person Depression/Shaken Baby/Safe Sleeping:? Mera educated parents on signs and symptoms of baby blues and mood and anxiety disorders to be on the lookout for during this period. MOB states that at this time she is feeling well and does not feel sad, anxious, depressed or overwhelmed. MOB states that she is eager to be ready for discharge to get home to the rest of her family. Mera educated parents on shaken baby prevention and ABCs of safe sleep. Parents express understanding. FOB stated that if MOB were to struggle with her mental health he would be able to recognize that and would know how to help and support her. ASSESSMENT:? MOB and baby are admitted following labor and delivery. MOB with mental health history positive for anxiety and depression. GARETH also had trauma listed in her chart, and reports that she fell as a young child and has always had pain since then, but it is manageable. FOB observed to hold baby and be attentive to him while sw completed assessment. MOB and FOB both talkative and engaged in assessment. GARETH states that she has supports in place if she needs someone to talk to during this period and has obtained everything needed for baby. PLAN:? MOB and baby to be discharged when medically ready. ?No other services requested or indicated. Reyna Torres, STILL OPERATOR [employer], JANITOR CLEANER
== END 2024-02-17 10:35 | disposition home or self-care (01) | DRG 785 ==
PROVIDERS: Obstetrics & Gynecology; Admitting Provider Obstetrics & Gynecology; PCP Family Medicine; Referring Provider Obstetrics & Gynecology; Visit Provider Obstetrics & Gynecology
DX: O34.211 Maternal care for low transverse scar from previous cesarean delivery (principal); D64.9 Anemia, unspecified; I83.93 Asymptomatic varicose veins of bilateral lower extremities; O22.03 Varicose veins of lower extremity in pregnancy, third trimester; O99.02 Anemia complicating childbirth; Z30.2 Encounter for sterilization; Z3A.38 38 weeks gestation of pregnancy; Z37.0 Single live birth
CPT/HCPCS: 59050; 85025; 85027; 86780; 86850; 86900; 86901; 88302; 99221; J1756; J7120; A4216; G0378; J2405

== ENCOUNTER → 2024-07-14 | Outpatient (CLI) | payer SELFPAY, OTHER ==
--- NOTE | 2024-07-14 10:38 | US_ITS ---
STUDY: SUPERFICIAL ULTRASOUND - LEFT UPPER ARM REASON FOR EXAM: Female, 29 years old. R/O MASS EDEMA AND PAIN TECHNIQUE: A superficial ultrasound was performed with real-time and static rizo-scale imaging. COMPARISON: None. FINDINGS: In the area of clinical concern, no abnormalities seen. No focal fluid collection or mass. No significant edema is seen. Electronically Signed: Arnel Chan MD at 16:24 EST , US/Ext Non Vasc Limited/Soft Tiss IMPRESSION: undefined
== END | disposition home or self-care (01) ==
LOC: CVS 10:35 → US 10:40
PROVIDERS: PCP Nurse Practitioner Family; Referring Provider Nurse Practitioner Family; Visit Provider Nurse Practitioner Family
DX: M79.622 Pain in left upper arm (principal); R60.0 Localized edema
CPT/HCPCS: 76882